=== PATIENT | female | born 1955 | race Caucasian/White ===

== ENCOUNTER → 2017-05-09 12:18 | Outpatient (CLI) | payer BC, SELFPAY ==
[2017-05-10 14:07] LABS: Anti-Scleroderma-70 AB <0.2 AI (0.0-0.9); Complement C3 149 mg/dL (82-167); RNP Ab <0.2 AI (0.0-0.9); SJOGREN'S Anti-SS-A test < 0.2 AI (0.0-0.9); SJOGREN'S Anti-SS-B test 0.3 AI (0.0-0.9); Smith Ab <0.2 AI (0.0-0.9)
[2017-05-10 14:45] LABS: ANTINUCLEAR ANTIBODIES DIRECT Negative (Negative); Anti-Mitochondrial AB <20.0 Units (0.0-20.0); Anti-Parietal Cell AB, QN < 1.0 Units (0.0-20.0); Anti-Smooth Muscle ABS 6 Units (0-19); Anti-dsDNA Ab <1 IU/mL (0-9); Thyroid Peroxidase AB 6 IU/mL (0-34)
== END ==
PROVIDERS: Family Provider Family Medicine; PCP Family Medicine; Visit Provider Internal Medicine Rheumatology
DX: M19.041 Primary osteoarthritis, right hand (principal); R76.8 Other specified abnormal immunological findings in serum; M25.572 Pain in left ankle and joints of left foot
CPT/HCPCS: 36415; 83516; 86038; 86160; 86225; 86235; 86376

== ENCOUNTER → 2018-03-17 08:32 | Outpatient (CLI) | payer BC, SELFPAY ==
[2018-03-17 11:01] LABS: Cholesterol 141 mg/dL (200); High Density Lipoprotein 37 mg/dL; Triglycerides 139 mg/dL; Very Low Density Lipoprotein 28 mg/dL (5-40)
== END ==
PROVIDERS: Family Provider Family Medicine; PCP Family Medicine; Referring Provider Family Medicine; Visit Provider Family Medicine
DX: E78.5 Hyperlipidemia, unspecified (principal)
CPT/HCPCS: 36415; 80061

== ENCOUNTER 2018-03-26 05:51 | Emergency (ER) | payer BC, SELFPAY ==
[2018-03-26 05:54] VITALS: BP 192/94; PULSE 91; RESP 16; TEMP 36.7; O2SAT 95; BMI 23.6
--- NOTE | 2018-03-26 05:55 | RAD_ITS ---
STUDY: X-RAY - SOFT TISSUE NECK REASON FOR EXAM: Female, 62 years old. Sore throat. Unable to clear the throat. TECHNIQUE: 2 view(s) of the neck were obtained. COMPARISON: None. FINDINGS: Questionable increased soft tissue base of the hypopharynx. Prevertebral soft tissues are unremarkable. Normal epiglottis. Normal visualized subglottic tracheal air column. Normal prevertebral soft tissue structures. Degenerative changes C5-6 and C6-7 with disc space narrowing and anterior osteophytes. RAD/Neck for Soft Tissue IMPRESSION: Questionable increased soft tissue within the hypopharynx. Consider CT of the neck with contrast. Degenerative changes of lower cervical spine. Electronically Signed: Vel Man MD at 6:27 EST , Service support ,
--- NOTE | 2018-03-26 05:56 | ED.VISSUMM ---
- ER Visit Summary Date of Service: 03/26/18 Chief Complaint: Something swollen in my throat History of Present Illness: The patient is a 62 F who states on Saturday she began to have a slight rhinorrhea and a very cough. This morning she woke with sensation something was in her throat. She states she does not feel like she can clear it. She is able to get up a little bit of phlegm but it did not help. She denies any fevers. No change in phonation. Physical Examination: Afebrile noted hypertension Gen: Well-nourished well-developed Head: Normocephalic atraumatic Eyes: Perrl EOMI ENT: TMs clear turbinate edema moist mucous membranes patient has a prominent gag reflex which limits exam but I do not see an obvious peritonsillar or retropharyngeal abscess. The uvula is erythematous and edematous. There is no drooling. No trismus. Neck: Supple no lymphadenopathy no JVD nontender CVS: Regular rate rhythm no murmurs normal S1-S2 Respiratory: No distress clear to auscultation bilaterally chest nontender Abdomen: Soft nontender nondistended normal bowel sounds no masses Back: Nontender Extremity: Nontender no edema Skin: Normal color no rash Neuro: alert orientated ?3 CN II-XII intact normal strength sensation reflexes gait cerebellar Psych: Normal affect normal mood Test Results: Soft tissue neck was obtained. Epiglottis is normal. There is a question of hypopharyngeal soft tissue swelling. However when asked to point where she is having symptoms she points up by her tonsillar area. Emergency Department Course and Treatment: Patient will be given a dose of Decadron. She will be instructed on cold fluids today. This should be a self-limited illness. Impression: 1. Uvulitis 2. URI This note was generated with [employer] dictation software. It may contain incorrect words, spelling, and punctuation that were not noted in review of the chart prior to signing ED Disposition - Plan for ED Patient: Disposition: Home or Assisted Living Chief Complaint: Sore Throat Instructions: ED Uvulitis Referrals: Geno Crocker DO [Primary Care Provider] - 1 Week if not improving
--- NOTE | 2018-03-26 06:01 | ED.DCSUM_ITS ---
- ER Visit Summary Date of Service: 03/26/18 Chief Complaint: Something swollen in my throat History of Present Illness: The patient is a 62 F who states on Saturday she began to have a slight rhinorrhea and a very cough. This morning she woke with sensation something was in her throat. She states she does not feel like she can clear it. She is able to get up a little bit of phlegm but it did not help. She denies any fevers. No change in phonation. Physical Examination: Afebrile noted hypertension Gen: Well-nourished well-developed Head: Normocephalic atraumatic Eyes: Perrl EOMI ENT: TMs clear turbinate edema moist mucous membranes patient has a prominent gag reflex which limits exam but I do not see an obvious peritonsillar or retropharyngeal abscess. The uvula is erythematous and edematous. There is no drooling. No trismus. Neck: Supple no lymphadenopathy no JVD nontender CVS: Regular rate rhythm no murmurs normal S1-S2 Respiratory: No distress clear to auscultation bilaterally chest nontender Abdomen: Soft nontender nondistended normal bowel sounds no masses Back: Nontender Extremity: Nontender no edema Skin: Normal color no rash Neuro: alert orientated ?3 CN II-XII intact normal strength sensation reflexes gait cerebellar Psych: Normal affect normal mood Test Results: Soft tissue neck was obtained. Epiglottis is normal. There is a question of hypopharyngeal soft tissue swelling. However when asked to point where she is having symptoms she points up by her tonsillar area. Emergency Department Course and Treatment: Patient will be given a dose of Decadron. She will be instructed on cold fluids today. This should be a self- limited illness. Impression: 1. Uvulitis 2. URI This note was generated with [employer] dictation software. It may contain incorrect words, spelling, and punctuation that were not noted in review of the chart prior to signing ED Disposition - Plan for ED Patient: Disposition: Home or Assisted Living Chief Complaint: Sore Throat Instructions: ED Uvulitis Referrals: Geno Crocker DO [Primary Care Provider] - 1 Week if not improving
== END 2018-03-26 06:45 | disposition home or self-care (01) ==
PROVIDERS: Emergency Provider Emergency Medicine; Family Provider Family Medicine; PCP Family Medicine
DX: K12.2 Cellulitis and abscess of mouth (principal); J06.9 Acute upper respiratory infection, unspecified; I10 Essential (primary) hypertension; Z79.899 Other long term (current) drug therapy
CPT/HCPCS: 70360; 99283

== ENCOUNTER → 2018-04-19 07:12 | Outpatient (CLI) | payer BC, SELFPAY ==
[2018-03-26 05:54] VITALS: BMI 23.6
--- NOTE | 2018-04-19 07:16 | BI_ITS ---
MAMMOGRAPHY - BILATERAL SCREENING REASON FOR EXAM: Female, 62 years old. Routine annual screening examination. PERTINENT HISTORY: Non-contributory. Remote right ultrasound guided breast biopsy and left stereotactic breast biopsy. TECHNIQUE: Digital bilateral breast ronit (3D mammographic acquisition) in the CC and MLO projections. 2-D mediolateral oblique (MLO) and craniocaudad (CC) views of both breasts were obtained. CAD: Full Field Digital Mammography with Computer Added Detection was performed. COMPARISON: Comparison is made with prior study dated November 05, 2016 and July 27, 2011. FINDINGS: Breast Composition: The breasts are heterogeneously dense, which may obscure small masses. There are no dominant masses or suspicious calcifications. Once again, a tissue clip marker from prior biopsy is seen in the deep retroareolar region of the left breast as well as in the upper lateral portion of the right breast. Stable asymmetrical thickening of the right areola. No other significant abnormalities are identified. There has been no significant change since the prior study. BI/SCREENING MAMM (CAD), BILAT IMPRESSION: Stable bilateral screening mammogram. Yearly follow-up mammogram recommended. (A) ASSESSMENT CATEGORY: BIRADS Category 2: Benign. A letter regarding these results will be sent to the patient by the facility within 30 days. Approximately 10% of breast cancers are not detected by mammography. A normal mammogram should not delay biopsy of a clinically suspicious abnormality. [id number] Electronically Signed: Nehemiah Holland MD at 8:30 EST Tel [phone], Service support ,
--- OUTSIDE RECORDS SUMMARY | 2018-07-23 08:23 | XMS RPT_ITS ---
:1955 Author Organization [place] Support Name Relationship Address Phone [facility] Unavailable [address] + [place] [address] KENNETH HODGSON Unavailable [address] + [place] [address] [facility] Unavailable [address] + [place] [address] KENNETH HODGSON Unavailable [address] + [place] [address] [facility] Unavailable [address] + [place] [address] KENNETH HODGSON Unavailable [address] + [place] [address] [facility] Unavailable [address] + [place] [address] KENNETH HODGSON Unavailable [address] + [place] [address] [facility] Unavailable [address] + [place] [address] KENNETH HODGSON Unavailable [address] [phone] [place] [address] KENNETH HODGSON Unavailable [address] + [place] [address] [facility] Unavailable [address] + [place] [address] KENNETH HODGSON Unavailable [address] [phone] [place] [address] [facility] Unavailable [address] + [place] [address] KENNETH HODGSON Unavailable [address] [phone] [place] [address] Care Team Providers Name Role Phone NATACHA JOSHUA Attending Unavailable DR. GENO CROCKER DO Primary Care Unavailable Niki Taveras Attending Unavailable Malys, Geno Primary Care Unavailable Malys, Geno Consulting Unavailable Malys, Geno Primary Care Unavailable Sigifredo Flores Attending Unavailable Radha Bran Attending Unavailable Malys, Geno Referring Unavailable Malys, Geno Primary Care Unavailable Malys, Geno Attending Unavailable Malys, Geno Primary Care Unavailable Malys, Geno Referring Unavailable Malys, Geno Primary Care Unavailable Asif Cuevas Attending Unavailable Niki Taveras Attending Unavailable Malys, Geno Referring Unavailable Malys, Geno Primary Care Unavailable Natacha Joshua Attending Unavailable Malys, Geno Primary Care Unavailable Natacha Joshua Referring Unavailable PROBLEMS PROBLEMS DATE TYPE CONDITION / CODE ATTENDING STATUS SOURCE 05/19/2018 Unknown S42.309A - Sigifredo Flores Active [facility] Unspecified Community fracture of shaft [facility] of humerus, Repository unspecified arm, initial encounter for closed fracture / S42.309A(ICD-10) 03/17/2018 Unknown E78.5 - Geno Crocker Active [facility] Hyperlipidemia, Community unspecified / Hospital E78.5(ICD-10) Repository PROCEDURES PROCEDURES No Procedure Records FoundRESULTS RESULTS EMERGENCY DEPARTMENT Observed: 05/23/2018 Status: F Source: [place] SUMMARY 12:13 AM [facility] [place] Medical Records Department [address] [place] [address] Emergency Department Summary 05/19/18 1309 MR#: [id number] Acct: [id number] Name: ADELAIDA HODGSON Rep #: [id number] : 1955 62 From: Sigifredo Flores MD PCP: Geno Crocker DO Status: DEP ER 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 She is right-hand dominant. Reports she is prior to emerge department he tripped over originally carpet and injured her left shoulder. She reports that she has pain here that is 10 out of 10 severity. She denies any other injuries. No blow to the head or loss of consciousness. She is not on blood thinners. No neck, back, wrist, or hip pain. Physical Examination: Vitals: Stable. Afebrile. Neck: No vertebral tenderness. Full ROM without difficulty. Cleared by NEXUS criteria. Back: No vertebral tenderness. General: A AND O x 3. NAD. Cardiovascular exam: Regular rate and rhythm, no murmur, rub or gallop. Respiratory exam: Chest nontender. No crepitus. Clear to auscultation bilaterally. No wheezes or stridor. Abdominal exam: Soft, nontender, nondistended, normal bowel sounds. No pain in RUQ or LUQ specifically. No peritoneal signs. Extremity: Severe tenderness palpation over the left proximal humerus. She has decreased range of motion secondary to pain. She is neurovascular intact distally this. Test Results: Left humerus x-ray shows a nondisplaced transverse fracture of the surgical neck with extension to the greater tuberosity. Emergency Department Course and Treatment: Patient was treated with fentanyl IM and was placed in a sling. Treatment Plan: Patient will be discharged with Zofran, Percocet, and Colace. Instructed follow-up with corporate bain and Dr. Colbert in 1 week for another exam. Return to the emergency department for any worsening symptoms. Disposition: To home in improved and stable condition. Impression: 1. Left proximal humerus fracture. This note was generated with ReadyDock dictation software. It may contain incorrect words, spelling, and punctuation that were not noted in review of the chart prior to signing ED Disposition - Plan for ED Patient: Disposition: Home or Assisted Living Chief Complaint: Fall Instructions: ED Fx Shoulder Prescriptions: Oxycodone HCl/Acetaminophen [Percocet 5/325] 1 tablet PO Q6H PRN PRN 5 Days #20 tablet PRN Reason: Pain Ondansetron [Zofran Odt] 4 mg PO Q8H PRN PRN #10 tablet PRN Reason: Nausea Docusate Sodium [Colace] 100 mg PO DAILY #20 capsule Referrals: Komal Hernandes [GROUP OF PHYSICIANS] - 1 Week Josiah Colbert DO [STAFF PHYSICIAN] - 1 Week What to do if you have Problems For any increased pain, shortness of breath, bleeding, nausea or vomiting, chest pain, or any unexpected problems, contact your Primary Care Provider. Call [facility] ([phone]) or report to the closest Emergency Room. Call 911 if necessary. 05/23/18 0013 <Electronically signed by Sigifredo Flores MD> Date Sigifredo Flores MD Cosigner Signature (If Indicated): Date CC: Geno Crocker DO HUMERUS MIN 2 VIEWS Observed: 05/19/2018 Status: F Source: [place] 12:00 PM [facility] Imaging Services [address] [place], [place] [address] [address] Humerus min 2 Views MR#: [id number] Acct: [id number] Name: ADELAIDA HODGSON Rep #: [id number] : 1955 F 62 From: Nehemiah Holland MD PCP: Geno Crocker DO Status: PRE ER Study: Humerus min 2 Views Date of Exam: 05/19/18 Exam# [id number] Ordering Dr: Sigifredo Flores MD STUDY: X-RAY - LEFT HUMERUS REASON FOR EXAM: Female, 62 years old. Pain in the proximal humerus following a fall. TECHNIQUE: 2 view(s) of the humerus. COMPARISON: None. FINDINGS: Nondisplaced transverse fracture of the surgical neck of the humerus with extension into the greater tuberosity. Soft tissue swelling. RAD/Humerus min 2 Views IMPRESSION: Nondisplaced transverse fracture of the surgical neck of the humerus with extension to the greater tuberosity. Overlying soft tissue swelling. Electronically Signed: Nehemiah Holland MD at 12:37 EST Tel [phone], Service support , CC: Geno Crocker DO; Sigifredo Flores MD Tile Layer Supervisor: Signed SCREENING MAMM (CAD), Observed: 04/19/2018 Status: F Source: [place] BILAT 7:16 AM [facility] Imaging Services [address] [place] [address] SCREENING MAMM (CAD), BILAT MR#: [id number] Acct: [id number] Name: ADELAIDA HODGSON Rep #: [id number] : 1955 F 62 From: Nehemiah Holland MD PCP: Geno Crocker DO Status: REG CLI Study: SCREENING MAMM (CAD), BILAT Date of Exam: 04/19/18 Exam# [id number] Ordering Dr: Niki Taveras MD MAMMOGRAPHY - BILATERAL SCREENING REASON FOR EXAM: Female, 62 years old. Routine annual screening examination. PERTINENT HISTORY: Non-contributory. Remote right ultrasound guided breast biopsy and left stereotactic breast biopsy. TECHNIQUE: Digital bilateral breast ronit (3D mammographic acquisition) in the CC and MLO projections. 2-D mediolateral oblique (MLO) and craniocaudad (CC) views of both breasts were obtained. CAD: Full Field Digital Mammography with Computer Added Detection was performed. COMPARISON: Comparison is made with prior study dated November 05, 2016 and July 27, 2011. FINDINGS: Breast Composition: The breasts are heterogeneously dense, which may obscure small masses. There are no dominant masses or suspicious calcifications. Once again, a tissue clip marker from prior biopsy is seen in the deep retroareolar region of the left breast as well as in the upper lateral portion of the right breast. Stable asymmetrical thickening of the right areola. No other significant abnormalities are identified. There has been no significant change since the prior study. BI/SCREENING MAMM (CAD), BILAT IMPRESSION: Stable bilateral screening mammogram. Yearly follow-up mammogram recommended. (A) ASSESSMENT CATEGORY: BIRADS Category 2: Benign. A letter regarding these results will be sent to the patient by the facility within 30 days. Approximately 10% of breast cancers are not detected by mammography. A normal mammogram should not delay biopsy of a clinically suspicious abnormality. [id number] Electronically Signed: Nehemiah Holland MD at 8:30 EST Tel [phone], Service support , CC: Geno Crocker DO; Niki Taveras MD Tile Layer Supervisor: Signed EMERGENCY DEPARTMENT Observed: 03/26/2018 Status: F Source: [place] SUMMARY 6:51 AM [facility] Medical Records Department [address] [place] [address] Emergency Department Summary 03/26/18 0556 MR#: [id number] Acct: [id number] Name: ADELAIDA HODGSON Rep #: [id number] : 1955 62 From: Asif Cuevas DO PCP: Geno Crocker DO Status: DEP ER - ER Visit Summary Date of Service: 03/26/18 Chief Complaint: Something swollen in my throat History of Present Illness: The patient is a 62 F who states on Saturday she began to have a slight rhinorrhea and a very cough. This morning she woke with sensation something was in her throat. She states she does not feel like she can clear it. She is able to get up a little bit of phlegm but it did not help. She denies any fevers. No change in phonation. Physical Examination: Afebrile noted hypertension Gen: Well-nourished well-developed Head: Normocephalic atraumatic Eyes: Perrl EOMI ENT: TMs clear turbinate edema moist mucous membranes patient has a prominent gag reflex which limits exam but I do not see an obvious peritonsillar or retropharyngeal abscess. The uvula is erythematous and edematous. There is no drooling. No trismus. Neck: Supple no lymphadenopathy no JVD nontender CVS: Regular rate rhythm no murmurs normal S1-S2 Respiratory: No distress clear to auscultation bilaterally chest nontender Abdomen: Soft nontender nondistended normal bowel sounds no masses Back: Nontender Extremity: Nontender no edema Skin: Normal color no rash Neuro: alert orientated 3 CN II-XII intact normal strength sensation reflexes gait cerebellar Psych: Normal affect normal mood Test Results: Soft tissue neck was obtained. Epiglottis is normal. There is a question of hypopharyngeal soft tissue swelling. However when asked to point where she is having symptoms she points up by her tonsillar area. Emergency Department Course and Treatment: Patient will be given a dose of Decadron. She will be instructed on cold fluids today. This should be a self- limited illness. Impression: 1. Uvulitis 2. URI This note was generated with ReadyDock dictation software. It may contain incorrect words, spelling, and punctuation that were not noted in review of the chart prior to signing ED Disposition - Plan for ED Patient: Disposition: Home or Assisted Living Chief Complaint: Sore Throat Instructions: ED Uvulitis Referrals: Geno Crocker DO [Primary Care Provider] - 1 Week if not improving What to do if you have Problems For any increased pain, shortness of breath, bleeding, nausea or vomiting, chest pain, or any unexpected problems, contact your Primary Care Provider. Call [facility] ([phone]) or report to the closest Emergency Room. Call 911 if necessary. 03/26/18 0651 <Electronically signed by Asif Cuevas DO> Date Asif Cuevas DO Cosigner Signature (If Indicated): Date CC: Geno Crocker DO NECK FOR SOFT Observed: 03/26/2018 Status: F Source: [place] TISSUE 5:55 AM [facility] Imaging Services [address] [place] [address] Neck for Soft Tissue MR#: [id number] Acct: [id number] Name: ADELAIDA HODGSON Rep #: [id number] : 1955 F 62 From: Vel Man PCP: Geno Crocker DO Status: REG ER Study: Neck for Soft Tissue Date of Exam: 03/26/18 Exam# [id number] Ordering Dr: Asif Cuevas DO STUDY: X-RAY - SOFT TISSUE NECK REASON FOR EXAM: Female, 62 years old. Sore throat. Unable to clear the throat. TECHNIQUE: 2 view(s) of the neck were obtained. COMPARISON: None. FINDINGS: Questionable increased soft tissue base of the hypopharynx. Prevertebral soft tissues are unremarkable. Normal epiglottis. Normal visualized subglottic tracheal air column. Normal prevertebral soft tissue structures. Degenerative changes C5-6 and C6-7 with disc space narrowing and anterior osteophytes. RAD/Neck for Soft Tissue IMPRESSION: Questionable increased soft tissue within the hypopharynx. Consider CT of the neck with contrast. Degenerative changes of lower cervical spine. Electronically Signed: Vel Man MD at 6:27 EST , Service support , CC: Asif Cuevas DO; Geno Crocker DO Tile Layer Supervisor: Signed LIPID PROFILE Collected: 03/17/2018 Status: F Source: [place] 8:37 AM [facility] [place] [facility] TYPE CODE TESTS RESULT OUT OF RANGE REFERENCE UNITS LAB L501.4900 200 mg/dL Normal CHOL 141 Result Comment: <200 mg/dL Desirable 200-240 mg/dL Borderline >240 mg/dL High Risk LAB L501.5000 mg/dL Normal TRIG 139 Result Comment: The drugs N-Acetylcysteine and Metamizole may falsely depress this assay. Serum Triglycerides Reference Interval Normal <150 mg/dL Borderline high 150 - 199 mg/dL High 200 - 499 mg/dL Very High > or = 500 mg/dL LAB L501.6400 mg/dL Low HDL 37 Result Comment: The drugs N-Acetylcysteine and Metamizole may falsely depress this assay. Reference Range HDL <40 mg/dL Low HDL Cholesterol HDL >or= 60 mg/dL High HDL Cholesterol LAB L501.6500 0-130 mg/dL Normal LDL 76 LAB L501.6600 5-40 mg/dL Normal VLDL 28 Performed By: #### L500.4100 #### [facility] [address] [place], [address] PROGRESS Observed: 09/23/2017 Status: COMPLETED Source: [place] 7:08 PM [facility] [place] REPOSITORY HNO ID: [id number] Author: Karina Harris (Library Science Instructor) Goucher Service: (none) Author Type: Nurse Practitioner Type: Progress Notes Filed: 09/23/2017 7:19 PM Note Text: Subjective HPI HPI Adelaida Hodgson is a 61 year old female who presents today for CC of sore throat This started 2 weeks ago She has tried tylenol ACTIVE PROBLEM LIST Osteoarthrosis, Unspecified Whether Generalized Or Localized, Unspecified Site Synovial Cyst, Unspecified Pyoderma, Unspecified Esophageal Reflux Diffuse Cystic Mastopathy Essential Hypertension Hypertonicity of Bladder Dysphagia, Unspecified(787.20) Rheumatoid Arthritis (Hcc) Asthma Psoriasis: hands Scalp Psoriasis Osteopenia Lichen Sclerosus Psoriasis arthropathica (HCC) Screening for Colon Cancer Bppv (Benign Paroxysmal Positional Vertigo) BP 140/84 Pulse 70 Temp 36.8 ?C (98.2 ?F) (Tympanic) Resp 16 Wt 73.5 kg (162 lb) LMP 08/31/2005 BMI 28.70 kg/m? ALLERGIES Allergen Reactions - Ampicillin Diarrhea loss of derek-severe diarrhea - Acebutolol Mental Status Change flat emotions, depressed- started again with no c/o - Adhesive Tape (Mavis* Swelling - Amoxicillin tongue swollen and sore - Atenolol Swelling tongue swelling - Azithromycin Intolerance conjunctiva redness, eyelids swollen - Doxycycline Swelling Swelling of tongue - Fluconazole Rash repeat dosing 07/2015 w swelling eyes,conjunctival redness - Irbesartan Intolerance heart pounding - Latex - Levaquin [Levofloxa* Mental Status Change burning total body - Lisinopril GI Upset heartburn - Macrobid [Nitrofura* Swelling Tongue swelling - Plaquenil [Hydroxyc* Intolerance cannot remember exactly Current Outpatient Prescriptions: metoprolol succinate ER (TOPROL XL) 50 mg 24 hr tablet Take 1 tablet by mouth once daily. Disp: 90 tablet Rfl: 0 nystatin (MYCOSTATIN) 100,000 unit/mL suspension Take 5 mL by mouth four times daily. 1tsp swish in mouth for several minutes, then swallow (or expectorate) 4 times daily until gone. Disp: 200 mL Rfl: 5 COMPOUNDED PRESCRIPTION Temovate Ointment 0.05% with 5.0% Salicylic Acid : Apply to psoriasis of palmar/plantar hands//feet qday as directed/tolerated prn need. Disp: 60 g Rfl: 3 clobetasol (TEMOVATE) 0.05 % ointment Apply to affected area nightly x 6-12 weeks, then use 1-2x weekly for maintenance Disp: 30 g Rfl: 6 ibuprofen (ADVIL) 200 mg ORAL Tab Take one(1) to two(2) tablets every two(2) hours as needed for pain. Disp: Rfl: 0 zolpidem (AMBIEN) 5 mg ORAL tablet Take one(1) tablet at bedtime as needed for insomnia. (Patient not taking: No sig reported) Disp: 30 Tab Rfl: 5 No current facility-administered medications for this visit. Review of Systems Constitutional: Negative for chills, diaphoresis, fever and malaise/fatigue. HENT: Positive for sore throat. Negative for congestion and ear pain. Respiratory: Negative for cough and wheezing. Gastrointestinal: Negative for abdominal pain, diarrhea, nausea and vomiting. Musculoskeletal: Negative for joint pain and myalgias. Skin: Negative for rash. Neurological: Negative for weakness and headaches. Objective Physical Exam Constitutional: She is oriented to person, place, and time and well-developed, well-nourished, and in no distress. No distress. HENT: Head: Normocephalic and atraumatic. Right Ear: Tympanic membrane and ear canal normal. Left Ear: Ear canal normal. Tympanic membrane is erythematous and bulging. A middle ear effusion (yellow) is present. Nose: Mucosal edema (mild) present. No rhinorrhea. Right sinus exhibits no maxillary sinus tenderness and no frontal sinus tenderness. Left sinus exhibits no maxillary sinus tenderness and no frontal sinus tenderness. Mouth/Throat: Uvula is midline and mucous membranes are normal. Posterior oropharyngeal erythema present. No oropharyngeal exudate. Eyes: Conjunctivae and EOM are normal. Pupils are equal, round, and reactive to light. Right eye exhibits no discharge. Left eye exhibits no discharge. Neck: Normal range of motion. Neck supple. No thyromegaly present. Cardiovascular: Normal rate, regular rhythm and normal heart sounds. Pulmonary/Chest: Effort normal and breath sounds normal. No respiratory distress. She has no wheezes. She has no rales. Lymphadenopathy: She has no cervical adenopathy. Neurological: She is alert and oriented to person, place, and time. Gait normal. GCS score is 15. Skin: Skin is warm and dry. She is not diaphoretic. Psychiatric: Affect and judgment normal. ASSESSMENT/PLAN: 1. Sore throat - ICD9: 462, ICD10: J02.9 (primary diagnosis) - Rapid Strep negative in the office today - RAPID STREP TEST B/O 2. Acute otitis media, left - ICD9: 382.9, ICD10: H66.92 - Supportive care with plenty of fluids, rest, and analgesia prn. - Follow up in one week if symptoms persist or worsen. - CEFDINIR 300 MG CAPSULE Karina Savage APRN.CNP CNOV Observed: 09/23/2017 Status: COMPLETED Source: [place] 7:[address] [facility] REPOSITORY Office Visit (WSTR) ADELAIDA HODGSON ([id number]) 1955 F Date Time Provider Department 09/23/17 7:00 PM KARINA SAVAGE (JOSE E) [facility] During your visit today, we recorded the following information about you: Temperature Pulse Respiration Blood pressure 98.2 degrees 70/minute 16/minute 140/84 Weight 73.5 kg Karina Savage APRN.CNP 09/23/2017 7:19 PM Signed Subjective HPI HPI Adelaida Hodgson is a 61 year old female who presents today for CC of sore throat This started 2 weeks ago She has tried tylenol ACTIVE PROBLEM LIST Osteoarthrosis, Unspecified Whether Generalized Or Localized, Unspecified Site Synovial Cyst, Unspecified Pyoderma, Unspecified Esophageal Reflux Diffuse Cystic Mastopathy Essential Hypertension Hypertonicity of Bladder Dysphagia, Unspecified(787.20) Rheumatoid Arthritis (Hcc) Asthma Psoriasis: hands Scalp Psoriasis Osteopenia Lichen Sclerosus Psoriasis arthropathica (HCC) Screening for Colon Cancer Bppv (Benign Paroxysmal Positional Vertigo) BP 140/84 Pulse 70 Temp 36.8 ?C (98.2 ?F) (Tympanic) Resp 16 Wt 73.5 kg (162 lb) LMP 08/31/2005 BMI 28.70 kg/m? ALLERGIES Allergen Reactions - Ampicillin Diarrhea loss of derek-severe diarrhea - Acebutolol Mental Status Change flat emotions, depressed- started again with no c/o - Adhesive Tape (Mavis* Swelling - Amoxicillin tongue swollen and sore - Atenolol Swelling tongue swelling - Azithromycin Intolerance conjunctiva redness, eyelids swollen - Doxycycline Swelling Swelling of tongue - Fluconazole Rash repeat dosing 07/2015 w swelling eyes,conjunctival redness - Irbesartan Intolerance heart pounding - Latex - Levaquin [Levofloxa* Mental Status Change burning total body - Lisinopril GI Upset heartburn - Macrobid [Nitrofura* Swelling Tongue swelling - Plaquenil [Hydroxyc* Intolerance cannot remember exactly Current Outpatient Prescriptions: metoprolol succinate ER (TOPROL XL) 50 mg 24 hr tablet Take 1 tablet by mouth once daily. Disp: 90 tablet Rfl: 0 nystatin (MYCOSTATIN) 100,000 unit/mL suspension Take 5 mL by mouth four times daily. 1tsp swish in mouth for several minutes, then swallow (or expectorate) 4 times daily until gone. Disp: 200 mL Rfl: 5 COMPOUNDED PRESCRIPTION Temovate Ointment 0.05% with 5.0% Salicylic Acid : Apply to psoriasis of palmar/plantar hands//feet qday as directed/tolerated prn need. Disp: 60 g Rfl: 3 clobetasol (TEMOVATE) 0.05 % ointment Apply to affected area nightly x 6-12 weeks, then use 1-2x weekly for maintenance Disp: 30 g Rfl: 6 ibuprofen (ADVIL) 200 mg ORAL Tab Take one(1) to two(2) tablets every two(2) hours as needed for pain. Disp: Rfl: 0 zolpidem (AMBIEN) 5 mg ORAL tablet Take one(1) tablet at bedtime as needed for insomnia. (Patient not taking: No sig reported) Disp: 30 Tab Rfl: 5 No current facility-administered medications for this visit. Review of Systems Constitutional: Negative for chills, diaphoresis, fever and malaise/fatigue. HENT: Positive for sore throat. Negative for congestion and ear pain. Respiratory: Negative for cough and wheezing. Gastrointestinal: Negative for abdominal pain, diarrhea, nausea and vomiting. Musculoskeletal: Negative for joint pain and myalgias. Skin: Negative for rash. Neurological: Negative for weakness and headaches. Objective Physical Exam Constitutional: She is oriented to person, place, and time and well-developed, well-nourished, and in no distress. No distress. HENT: Head: Normocephalic and atraumatic. Right Ear: Tympanic membrane and ear canal normal. Left Ear: Ear canal normal. Tympanic membrane is erythematous and bulging. A middle ear effusion (yellow) is present. Nose: Mucosal edema (mild) present. No rhinorrhea. Right sinus exhibits no maxillary sinus tenderness and no frontal sinus tenderness. Left sinus exhibits no maxillary sinus tenderness and no frontal sinus tenderness. Mouth/Throat: Uvula is midline and mucous membranes are normal. Posterior oropharyngeal erythema present. No oropharyngeal exudate. Eyes: Conjunctivae and EOM are normal. Pupils are equal, round, and reactive to light. Right eye exhibits no discharge. Left eye exhibits no discharge. Neck: Normal range of motion. Neck supple. No thyromegaly present. Cardiovascular: Normal rate, regular rhythm and normal heart sounds. Pulmonary/Chest: Effort normal and breath sounds normal. No respiratory distress. She has no wheezes. She has no rales. Lymphadenopathy: She has no cervical adenopathy. Neurological: She is alert and oriented to person, place, and time. Gait normal. GCS score is 15. Skin: Skin is warm and dry. She is not diaphoretic. Psychiatric: Affect and judgment normal. ASSESSMENT/PLAN: 1. Sore throat - ICD9: 462, ICD10: J02.9 (primary diagnosis) - Rapid Strep negative in the office today - RAPID STREP TEST B/O 2. Acute otitis media, left - ICD9: 382.9, ICD10: H66.92 - Supportive care with plenty of fluids, rest, and analgesia prn. - Follow up in one week if symptoms persist or worsen. - CEFDINIR 300 MG CAPSULE VENU Cary APRN.CNP 09/23/2017 7:17 PM Signed ASSESSMENT/PLAN: 1. Sore throat - ICD9: 462, ICD10: J02.9 (primary diagnosis) - Rapid Strep negative in the office today - RAPID STREP TEST B/O 2. Acute otitis media, left - ICD9: 382.9, ICD10: H66.92 - Supportive care with plenty of fluids, rest, and analgesia prn. - Follow up in one week if symptoms persist or worsen. - CEFDINIR 300 MG CAPSULE Referring Provider: SELF [200] Allergies As of Date: 09/23/2017 Noted Allergy Reaction AMPICILLIN 11/07/2004 6 - Diarrhea Comments: loss of derek-severe diarrhea ACEBUTOLOL 05/13/2012 1 - Mental Status Change Comments: flat emotions, depressed- started again with no c/o ADHESIVE TAPE (ROSINS) 02/17/2007 7 - Swelling AMOXICILLIN 06/28/2007 Comments: tongue swollen and sore ATENOLOL 01/26/2009 7 - Swelling Comments: tongue swelling AZITHROMYCIN 08/10/2015 5 - Intolerance Comments: conjunctiva redness, eyelids swollen DOXYCYCLINE 04/21/2008 7 - Swelling Comments: Swelling of tongue FLUCONAZOLE 07/10/2013 2 - Rash Comments: repeat dosing 07/2015 w swelling eyes,conjunctival redness IRBESARTAN 01/07/2013 5 - Intolerance Comments: heart pounding LATEX 02/22/2009 LEVAQUIN (LEVOFLOXACIN) 05/13/2012 1 - Mental Status Change Comments: burning total body LISINOPRIL 03/24/2008 8 - GI Upset Comments: heartburn MACROBID (NITROFURANTOIN MONOHYD/*11/05/2005 7 - Swelling Comments: Tongue swelling PLAQUENIL (HYDROXYCHLOROQUINE SUL*08/22/2009 5 - Intolerance Comments: cannot remember exactly Date Reviewed: 09/23/2017 Reviewed by: Karina Harris (Jose E) Hussein - Fully Assessed Reason for Visit: Throat Problem [109] Cmt: left tonsil pain x 2 weeks Primary Visit Diagnosis:Sore throat [J02.9] Other Visit Diagnosis:Acute otitis media, left [H66.92] Order(s):RAPID STREP TEST B/O [1390923] Order #: [id number] cefdinir (OMNICEF) 300 mg capsuleTake 1 capsule by mouth twice daily for 10 days.Disp: 20 capsuleRfl: 0 Prescriptions as of 09/23/2017 Sig: METOPROLOL SUCCINATE ER 50 MG* Take 1 tablet by mouth once d* NYSTATIN 100,000 UNIT/ML ORAL* Take 5 mL by mouth four times* COMPOUNDED PRESCRIPTION Temovate Ointment 0.05% with * CLOBETASOL 0.05 % TOPICAL OIN* Apply to affected area nightl* ADVIL 200 MG TABLET Take one(1) to two(2) tablets* CEFDINIR 300 MG CAPSULE Take 1 capsule by mouth twice* ZOLPIDEM 5 MG TABLET Take one(1) tablet at bedtime* Patient not taking: No sig reported Problem List As Of Date 09/23/2017 Noted Resolved PSORIASIS [L40.8] INVALID FOR*06/30/2008 PSORIATIC ARTHROPATHY ? [L40.50] INVALID FOR*06/30/2008 OSTEOARTHROS NOS-UNSPEC [M19.90] INVALID FOR* SYNOVIAL CYST NOS [M71.30] INVALID FOR* PYODERMA NOS [L08.0] INVALID FOR* ESOPHAGEAL REFLUX [K21.9] INVALID FOR* DISEASES OF NAIL NEC [L60.8] INVALID FOR*06/30/2008 CUTANEOUS CANDIDIASIS [B37.2] INVALID FOR*06/30/2008 DIFFUS CYSTIC MASTOPATHY [N60.19] INVALID FOR* CONTACT ECZEMATOUS DERMATITIS NEC [L25.8] INVALID FOR*06/30/2008 CONTACT DERMATITIS DUE TO PLANT [L25.5] INVALID FOR*06/30/2008 TOPICAL MED DERMATITIS [L25.1] INVALID FOR*06/30/2008 ECZEMATOUS DERMATITIS NOS [L25.9] INVALID FOR*06/30/2008 PRURITIC DISORDER NOS [L29.9] INVALID FOR*06/30/2008 EXCORIATIONS///SUPERFICIAL INJURY NEC [T07.XXXA]INVALID FOR*06/30/2008 Essential hypertension [I10] INVALID FOR* HYPERTONICITY OF BLADDER [N31.8] INVALID FOR* Dysphagia, Unspecified [R13.10] INVALID FOR* Acute gastritis without mention of hemorrhage [*INVALID FOR*09/08/2013 Rheumatoid arthritis (HCC) [M06.9] INVALID FOR* Asthma [J45.909] INVALID FOR* Psoriasis: hands [L40.8] INVALID FOR* Scalp Psoriasis [L40.9] INVALID FOR* Abnormal mammogram, unspecified [R92.8] INVALID FOR*09/08/2013 Osteopenia [M85.80] INVALID FOR* Cystitis [N30.90] INVALID FOR*09/08/2013 Lichen sclerosus [L90.0] INVALID FOR* Psoriasis arthropathica (HCC) [L40.50] INVALID FOR* Screening for colon cancer [Z12.11] INVALID FOR* BPPV (benign paroxysmal positional vertigo) [H8*INVALID FOR* Other instructions from your clinician: ASSESSMENT/PLAN: 1. Sore throat - ICD9: 462, ICD10: J02.9 (primary diagnosis) - Rapid Strep negative in the office today - RAPID STREP TEST B/O 2. Acute otitis media, left - ICD9: 382.9, ICD10: H66.92 - Supportive care with plenty of fluids, rest, and analgesia prn. - Follow up in one week if symptoms persist or worsen. - CEFDINIR 300 MG CAPSULE Prescriptions ordered this encounter Disp Refills Start End CEFDINIR 300 MG CAPSULE 20 c* 0 09/23/2017 10/03/2017 Route: ORAL Sig: Take 1 capsule by mouth twice daily for 10 days. Encounter Status:Closed by KARINA SAVAGE on 09/23/17 [facility]MOND PASTE MOLDER OFFICE VISIT Observed: 07/29/2017 Status: F Source: FANY REPORT 3:28 PM [facility] [place] [facility] [address] [place] [address] OFFICE VISIT Date of Service: 07/29/17 MR#: [id number] Acct: [id number] Name: ADELAIDA HODGSON Rep #: [id number] : 1955 Provider: NINA Bran Age/Sex: 61/F [place] [facility] [place] Signed Intake Vital Signs07/29/17 Height 5 ft 4 in 07/29/17 Weight: 161 lb 8 oz 07/29/17 Body Mass Index (BMI) 27.7 07/29/17 Blood Pressure 170/82 Intake Visit Reasons: Vaginal bump Chief Complaint: Vaginal Bump Catalog Librarian Required: No Is patient in pain?: No Allergies amoxicillin Allergy (Severe, Verified 07/29/17 14:54) tongue swelling atenolol Allergy (Severe, Verified 07/29/17 14:54) tongue swelling lisinopril Allergy (Intermediate, Verified 07/29/17 14:54) tongue swelling Medications metoprolol succinate ER 50 mg tablet,extended release 24 hr 50 mg PO QDAY 04/16/17 [History Confirmed 07/29/17] ranitidine 150 mg tablet 150 mg PO QHS 07/29/17 [History Confirmed 07/29/17] Is last menstrual period known: No Post menopausal: Yes Patient : No : No [facility] Medical History Lichen sclerosus et atrophicus (Chronic) Arthritis (Acute) History of cancer of gall bladder (Acute) Lichen sclerosus (Acute) Low back problem (Acute) High blood pressure (Chronic) Surgical History History of appendectomy (Acute) History of section (Acute) Hx of cholecystectomy (Acute) Family History Mother Heart disease Brother Heart disease Diabetes Father Diabetes Heart disease Social History Smoking Status: Never smoker second hand exposure: No alcohol intake: never substance use type: does not use what type of physical activity do you participate in: none seatbelt use: always do you feel safe at home: Yes additional social history: spouse Kenneth PARKER Vaginal bump: Details: ADELAIDA HODGSON is a 61 year old who presents for starting about 6 days ago painful lump in left vaginal area. States drained on 07/26 and less painful but wanted checked. Minimal discomfort to area now. No longer draining. Afebrile Pregancy History 2 Elective abortions Hx Para 2 Spontaneous abortions Past Pregnancies Del. DatName GA[facility]Out[facility] LgAn[facility]hesDel LocaProviderFOB e ht en ia tn Unknown 1982 Mat thew Unknown 1985 Ashish Exam Other: inner left labia <1cm healing inclusion cyst. Nonerythematous, nontender, no drainage. Assessment AND Plan Problems 1. Inclusion cyst of vulva N90.7 Plan healing appropriately. Warm soaks for comfort. Do not manipulate RTO prn Coding Level of Care Code Off vis,est,level 3 Diagnoses Inclusion cyst of vulva N90.7 07/29/17 1528 <Electronically signed by Radha GERONIMO> Date Radha Bran NP-C Cosigner Signature: Date (if applicable) CC: US EXTREMITY Observed: 07/08/2017 Status: F Source: JYOTSNA NON-VASCULAR LEFT 3:00 PM [facility] EM[facility]PART[facility] REPOSITORY ORIGINAL Ultrasound of the left forefoot CLINICAL STATEMENT: PAIN IN LT ANKLE AND JOINTS OF LT FOOT. ATTN: LT THIRD TOE, W/ PAIN AND SWELLING , history of psoriasis. COMPARISON: None FINDINGS: The dorsal aspect of the left third toe was scanned with additional images of the second and fourth toe also. At the PIP joint of the third toe, there is moderate thickening of synovium deep to the extensor tendon. Doppler evaluation does not show any increased blood flow in this area of synovial thickening. Th e extensor tendon appears intact. There is no significant joint effusion. Moderate marginal osteophyte formation is present at the PIP joint. There is also hypertrophy of the subcutaneous soft tissues of the third toe compared to the adjacent toes. Comparison images of the second and fourth toe show normal extensor tendon and no significant synovial thickening or joint effusion. There is mild degenerative marginal spurring. IMPRESSION: There is moderate thickening of the synovium in the third toe at the PIP joint as described. This is usually seen with inflammatory type of arthritis rather than osteoarthritis. The absence of blood riley w on Doppler would indicate inactive disease. There is evidence of degenerative arthritis at the PIP joint also. Interpreted By: Eldon Harris MD Preliminary Report By: Eldon Harris MD Electronically Signed By: Eldon Harris MD Dictated Date: 07/10/2017 11:14:19 AM Prelim Date: 07/10/2017 11:14:19 AM Sign Date: 07/10/2017 11:21:01 AM URIC ACID Collected: 05/29/2017 Status: F Source: FANY 12:25 PM [facility] [place] TYPE CODE TESTS RESULT OUT OF RANGE REFERENCE UNITS LAB L501.1400 2.6-6.0 mg/dL Normal URIC 6.0 Result Comment: The drugs N-Acetylcysteine and Metamizole may falsely depress this assay. Performed By: #### L501.1400, L505.7010 #### [facility] [address] [place], [address] RHEUMATOID FACTOR Collected: 05/29/2017 Status: F Source: FANY 12:25 PM [facility] [place] TYPE CODE TESTS RESULT OUT OF RANGE REFERENCE UNITS LAB L505.7010 <15 IU/mL Normal RHEUMATOID FAC < 10.0 Performed By: #### L501.1400, L505.7010 #### [facility] [address] [place], [address] [facility]D PA[employer] [facility]DER OFFICE VISIT Observed: 05/29/2017 Status: F Source: FANY REPORT 12:17 PM [facility] [place] 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 Chief Complaint: annual Catalog Librarian Required: No Is patient in pain?: No Allergies amoxicillin Allergy (Severe, Verified 04/16/17 11:09) tongue swelling atenolol Allergy (Severe, Verified 04/16/17 11:10) tongue swelling lisinopril Allergy (Intermediate, Verified 04/16/17 11:09) tongue swelling Medications ibuprofen 100 mg tablet PO PRN 04/16/17 [History Confirmed 04/16/17] metoprolol succinate ER 50 mg tablet,extended release 24 hr 50 mg PO QDAY 04/16/17 [History Confirmed 04/16/17] Is last menstrual period known: No Patient : No : No Pregancy History 2 Elective abortions Hx Para 2 Spontaneous abortions Past Pregnancies Del. DatName GA/WeeksOutcome Route Bt WeigInfant GLabor LgAnesthesDel LocaProviderFOB e ht en ia tn Unknown 1982 Mat thew Unknown 1985 Ashish th [facility] Medical History Lichen sclerosus et atrophicus (Chronic) Arthritis (Acute) History of cancer of gall bladder (Acute) Lichen sclerosus (Acute) Low back problem (Acute) High blood pressure (Chronic) Surgical History History of appendectomy (Acute) History of section (Acute) Family History Mother Heart disease Brother Heart disease Diabetes Father Diabetes Heart disease Social History Smoking Status: Never smoker second hand exposure: No alcohol intake: never substance use type: does not use what type of physical activity do you participate in: none seatbelt use: always additional social history: spouse Kenneth [facility] Encounter for routine gynecological examination: Details: ADELAIDA HODGSON is a 61 year old who presents for annual. pap 2014 normal kellen due colon cancer screening up to date Female Reproductive History Questions: Metorrhagia: No, Sexually active: Yes, Dyspareunia: No, PCB: No Menopausal Symptoms: No hot flashes, No night sweats, No weight change, No mood changes, No difficulty concentrating, No sleep problems, No change in libido ROS Const Constitutional: Reports as per HPI; denies poor appetite, fatigue, increased appetite, weight gain, weight loss or night sweats Cardio Card: Denies chest pain Resp Resp: Denies dyspnea or cough GI GI: Reports as per HPI and other (history in past of issues but doing well); denies bloating, abdominal pain, constipation, vomiting or nausea : Reports as per HPI and other; denies blood in urine, nipple discharge, vaginal odor, vaginal itching, vaginal dryness, vaginal discharge, urinary urgency, urinary incontinence, urinary frequency, pelvic pain, painful urination, difficulty urinating or hot flashes Skin Skin/Breast: Denies nipple discharge, breast skin changes, breast pain, breast lump or new lesions Psych Psych: Denies difficulty concentrating or change in sex drive Exam Const General: cooperative, healthy appearing, comfortable, no acute distress, well developed, well groomed [facility] Head: normal to inspection, normocephalic Ears: hearing grossly normal bilaterally, external ears normal Nose: external nose normal Face and sinus: normal facial exam Neck Neck: normal visual inspection, full ROM, no lymphadenopathy Thyroid: thyroid normal Chest Chest palpation AND inspection: normal inspection of the chest Breast inspection: normal inspection of the breasts, normal inspection of the axillae Breast palpation: normal palpation of the breasts, normal palpation of the axillae, no axillary lymphadenopathy Resp Effort AND Inspection: normal respiratory effort GI Inspection: normal to inspection, non-distended Palpation: no guarding, soft, no hepatosplenomegaly General: bladder normal to palpation External Female Exam: normal appearance of the urethra, no lesions, other (lichenification of perineal body) Urethra: normal appearance of the urethra, normal palpation Speculum Exam - Vagina: normal appearance of the vagina, normal vaginal discharge Speculum Exam - Cervix: normal appearance of the cervix, no cervical discharge, no lesions, nontender Bimanual Exam- Vagina AND Uterus: No cervical tenderness, normal bimanual exam, uterine size normal, bladder normal to palpation, uterine mobility normal, uterine consistency normal, uterus non-tender, no cervical motion tenderness Bimanual Exam- Adnexa, other: normal adnexae, no adnexal masses, adnexae non-tender, pelvic support normal Pelvic Support: normal Skin General: no rashes or lesions noted Neuro General: alert, moves all extremities, no focal motor deficits Extrem General: no pedal edema, normal to inspection Psych Appearance: grossly normal Mental Status: mental status grossly normal Affect: normal affect Speech and Movement: speech and movement normal Attitude: cooperative Assessment AND Plan Problems 1. Encounter for gynecological examination with abnormal finding Z01.411; Z01.411 2. Lichen sclerosus et atrophicus L90.0 clobetasol 3. Encounter for screening mammogram for breast cancer Z12.31 Plan Cervical cancer screening: up to date Breast cancer screening: mamm ordered other health maintenance examination reviewed and up to date. Encouraged maintenance of a healthy weight and active lifestyle and handout given. Calcium/vitamin D supplementation information provided. Follow up in one year for annual health maintenance exam or sooner if needed. Plan Detail Follow Up 1 Year 12/18/17 0815 <Electronically signed by Niki Taveras MD> Date Niki Taveras MD Cosigner Signature: Date (if applicable) CC: ALLERGIES ALLERGIES DATE TYPE / NAME / CODE REACTION SEVERITY SOURCE CODE Drug lisinopril/[id number](R TONGUE SWELLING MO Raymond 9 Allergy/4 XNORM) Community [id number]( [facility] SNOMED Repository CT) Drug atenolol/[id number](RXN TONGUE SWELLING SV Raymond 9 Allergy/4 ORM) Community [id number]( [facility] SNOMED Repository CT) Drug amoxicillin/[id number]( TONGUE SWELLING SV Raymond 9 Allergy/4 RXNORM) Community [id number]( [facility] SNOMED Repository CT) DRUG AZITHROMYCIN INTOLERANCE Moya 6 INGREDI/4 Clinic Main [id number]( [place] SNOMED Repository CT) DRUG FLUCONAZOLE RASH Moya 4 INGREDI/4 Clinic Main [id number]( [place] SNOMED Repository CT) DRUG IRBESARTAN INTOLERANCE Moya 3 INGREDI/4 Clinic Main [id number]( [place] SNOMED Repository CT) DRUG ACEBUTOLOL Mental Chg Moya 3 INGREDI/4 Clinic Main [id number]( [place] SNOMED Repository CT) DRUG LEVOFLOXACIN Mental Chg Moya 3 INGREDI/4 Clinic Main [id number]( [place] SNOMED Repository CT) DRUG HYDROXYCHLOROQUINE INTOLERANCE Moya 0 INGREDI/4 SULFATE Clinic Main [id number]( [place] SNOMED Repository CT) DRUG LATEX Moya 9 INGREDI/4 Clinic Main [id number]( [place] SNOMED Repository CT) DRUG ATENOLOL SWELLING Moya 9 INGREDI/4 Clinic Main [id number]( [place] SNOMED Repository CT) DRUG DOXYCYCLINE SWELLING Moya 8 INGREDI/4 Clinic Main [id number]( [place] SNOMED Repository CT) DRUG LISINOPRIL GI UPSET Grawn 8 INGREDI/4 Clinic Main [id number]( [place] SNOMED Repository CT) DRUG AMOXICILLIN [place] 8 INGREDI/4 Clinic Main [id number]( [place] SNOMED Repository CT) Chemical/ ADHESIVE TAPE (ROSINS) SWELLING [place] 7 [phone] Clinic Main (SNOMED [place] CT) Repository DRUG/4195 NITROFURANTOIN SWELLING Grawn 6 77519(SNO MONOHYD/M-CRYST Clinic Main MED CT) [place] Repository DRUG AMPICILLIN DIARRHEA High [place] 5 INGREDI/4 [facility] Main [id number]( [place] SNOMED Repository CT) ENCOUNTERS ENCOUNTERS ADMIT/DISCHARGE ACCOUNT NUMBER ADMITTING ENCOUNTER LOCATION SOURCE CLASS 05/19/2018/05/19/19 [id number] Emergency [facility] ding:ED Repository 04/19/2018 [id number] [facility] ding:OPBI Repository 03/26/2018/03/26/20 [id number] Emergency [address] ding:ED Repository 03/17/2018 [id number] [facility] ding:LAB.FUT Repository URE 09/23/2017/09/25/19 [id number] Ambulatory [address] [place] Repository 07/29/2017/07/30/19 [id number] Ambulatory BMSBuilding: Fany 18 BMS.[facility] Repository 07/08/2017/07/09/19 [id number] Ambulatory AULTMANBuild [place] 18 ing:[facility] Repository 05/27/2017 [id number] [facility] ding:LAB.FUT Repository URE 04/16/2017/04/16/20 [id number] Ambulatory BMSBuilding: Fany 17 BMS.[facility] Repository PAYERS PAYERS ENCOUNTER GUARANTOR PAYER SUBSCRIBER SOURCE 05/19/2018 KENNETH Win Primary Insurance:SELF ADELAIDA [id number] [facility] Stephanie ERICKSON: [facility]: [id number], [id number] Repository [place] [address]Cxm: Date:[id number] [facility] () INCPO [address] [place] [address] 74[address]JR: 05/19/2018 Secondary BATSHEVA Raymond Insurance:ANTHEMPolicy YODERDOB: [facility] Number: [id number] Hospital [id number] Repository Date:9907-57-49IG [address] [place] [address] 93[address]SY: 05/19/2018 Tertiary NOT GIVENUNK Fany Insurance:SELF PAY [facility] Number: Effective Repository Date:2018-05-19 04/19/2018 BATSHEVA Primary BATSHEVA Raymond [id number] Insurance:ANTHEMPolicy YODERDOB: [facility] Number: [id number] [id number] Repository [place] [address]Nan: Date:9932-03-75MW [address], [facility]) [address]GI: 04/19/2018 Secondary NOT GIVENUNK Raymond Insurance:SELF PAY [facility] Number: Effective Repository Date:2018-03-07 03/26/2018 BATSHEVA Primary BATSHEVA Fany [id number] Insurance:ANTHEMPolicy YODERDOB: [facility] Number: [id number] [facility] [id number] Repository [place] [address]Gqo: Date:0581-71-77AM [address], [facility]) [address]TO: 03/26/2018 Secondary NOT GIVENUNK Fany Insurance:SELF PAY [facility] Number: Effective Repository Date:2018-03-26 03/17/2018 BATSHEVA Primary BATSHEVA Raymond [id number] Insurance:ANTHEMPolicy YODERDOB: [facility] Number: [id number] [facility] [id number] Repository [place] [address]Mte: Date:9321-41-02RG [address] () [address]BM: 03/17/2018 Secondary NOT GIVENUNK Raymond Insurance:SELF PAY [facility] Number: Effective Repository Date:2017-12-17 07/29/2017 Kenneth Win Primary ADELAIDA R Fany [id number] Insurance:ANTHEMPolicy YODERDOB: [facility] [place] Number: [id number] Hospital Pier[place], [id number] [place]ository [place] [address]Axx: Date:7806-66-07MX [address] () [address]BC: 07/29/2017 Secondary NOT GIVENUNK Fany Insurance:SELF PAY [facility] Number: Effective Repository Date:2017-07-29 07/08/2017 ADELAIDA R Primary KENNETH YODERDOB: [employer] YODERDOB: Insurance:ANTHEM BLUE [id number] [facility] [address] Repository SM[place]ER Number: MING GARRISON, [id number]: (330) [place] [address]Njl: Date:2017-07-04 [phone] ( [id number] ()Tel: 216) ()Tel: (330) Name:[facility] [place] [phone] () [phone] () JARAD Mendoza [address]JE: 05/27/2017 Kenneth Win Primary ADELAIDA R Raymond [id number] Insurance:ANTHEMPolicy [facility]: [id number] [facility] [place], [id number] Repository [place] [address]Jlh: Date:6623-97-02BW [address] () [address]EV: 05/27/2017 Secondary NOT GIVENUNK Raymond Insurance:SELF PAY [facility] Number: Effective Repository Date:2017-05-27 04/16/2017 Kenneth Win Primary ADELAIDA Soares [id number] Insurance:ANTHEMPolicy YODERDOB: [facility] Number: [id number] Hospital Rosalinamitcortes [id number] Repository [place] [address]Kwt: Date:8421-47-11BG [address]OPWFIVD, [place] () [address]KO: 04/16/2017 Secondary NOT GIVENUNK Raymond Insurance:SELF PAY [facility] Number: Effective Repository Date:2017-04-07
== END ==
PROVIDERS: Family Provider Family Medicine; PCP Family Medicine; Visit Provider Obstetrics & Gynecology
DX: Z12.31 Encounter for screening mammogram for malignant neoplasm of breast (principal)
CPT/HCPCS: 77063; 77067

== ENCOUNTER 2018-05-19 11:39 | Emergency (ER) | payer OTHER, BC, SELFPAY ==
[2018-05-19 11:41] VITALS: BP 205/111; PULSE 67; RESP 18; TEMP 36.4; O2SAT 99; BMI 27.4
--- NOTE | 2018-05-19 12:15 | RAD_ITS ---
STUDY: X-RAY - LEFT HUMERUS REASON FOR EXAM: Female, 62 years old. Pain in the proximal humerus following a fall. TECHNIQUE: 2 view(s) of the humerus. COMPARISON: None. FINDINGS: Nondisplaced transverse fracture of the surgical neck of the humerus with extension into the greater tuberosity. Soft tissue swelling. RAD/Humerus min 2 Views IMPRESSION: Nondisplaced transverse fracture of the surgical neck of the humerus with extension to the greater tuberosity. Overlying soft tissue swelling. Electronically Signed: Nehemiah Holland MD at 12:37 EST Tel [phone], Service support ,
--- NOTE | 2018-05-19 13:09 | ED.VISSUMM ---
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 She is right-hand dominant. Reports she is prior to [facility] department he tripped over originally carpet and injured her left shoulder. She reports that she has pain here that is 10 out of 10 severity. She denies any other injuries. No blow to the head or loss of consciousness. She is not on blood thinners. No neck, back, wrist, or hip pain. Physical Examination: Vitals: Stable. Afebrile. Neck: No vertebral tenderness. Full ROM without difficulty. Cleared by NEXUS criteria. Back: No vertebral tenderness. General: A&O x 3. NAD. Cardiovascular exam: Regular rate and rhythm, no murmur, rub or gallop. Respiratory exam: Chest nontender. No crepitus. Clear to auscultation bilaterally. No wheezes or stridor. Abdominal exam: Soft, nontender, nondistended, normal bowel sounds. No pain in RUQ or LUQ specifically. No peritoneal signs. Extremity: Severe tenderness palpation over the left proximal humerus. She has decreased range of motion secondary to pain. She is neurovascular intact distally this. Test Results: Left humerus x-ray shows a nondisplaced transverse fracture of the surgical neck with extension to the greater tuberosity. Emergency Department Course and Treatment: Patient was treated with fentanyl IM and was placed in a sling. Treatment Plan: Patient will be discharged with Zofran, Percocet, and Colace. [facility] 1 week for another exam. Return to the emergency department for any worsening symptoms. Disposition: To home in improved and stable condition. Impression: 1. Left proximal humerus fracture. This note was generated with [employer] dictation software. It may contain incorrect words, spelling, and punctuation that were not noted in review of the chart prior to signing ED Disposition - Plan for ED Patient: Disposition: Home or Assisted Living Chief Complaint: Fall Instructions: ED Fx Shoulder Prescriptions: Oxycodone HCl/Acetaminophen [Percocet 5/325] 1 tablet PO Q6H PRN PRN 5 Days #20 tablet PRN Reason: Pain Ondansetron [Zofran Odt] 4 mg PO Q8H PRN PRN #10 tablet PRN Reason: Nausea Docusate Sodium [Colace] 100 mg PO DAILY #20 capsule Referrals: [facility] [GROUP OF PHYSICIANS] - 1 Week Josiah Colbert DO [STAFF PHYSICIAN] - 1 Week
[2018-05-19] MEDS: fentaNYL 100 MCG/2 ML Ampul 50 MCG IM (13:31)
[2018-05-19 13:57] VITALS: BP 154/84; PULSE 61; RESP 18; O2SAT 98
== END 2018-05-19 13:58 | disposition home or self-care (01) ==
LOC: ED 12:41
PROVIDERS: Emergency Provider Emergency Medicine; Family Provider Family Medicine; PCP Family Medicine
DX: S42.215A Unspecified nondisplaced fracture of surgical neck of left humerus, initial encounter for closed fracture (principal); S42.255A Nondisplaced fracture of greater tuberosity of left humerus, initial encounter for closed fracture; W18.09XA Striking against other object with subsequent fall, initial encounter; Y93.9 Activity, unspecified; Y92.9 Unspecified place or not applicable; R09.81 Nasal congestion; I10 Essential (primary) hypertension; Z79.899 Other long term (current) drug therapy
CPT/HCPCS: 73060; 96372; 99283

== ENCOUNTER → 2018-10-22 | Outpatient (CLI) | payer BC, SELFPAY ==
[2018-10-22 17:58] LABS: ALB/GLOB Ratio 0.9 RATIO (0.9-2.4); AST(SGOT) 26 U/L (15-37); Alanine Aminotransfer ALT/SGPT 43 U/L (13-56); Albumin, Serum 3.9 g/dL (3.2-5.0); Alkaline Phosphatase 80 U/L (45-117); Anion Gap 5 (5-15); BUN 12 mg/dL (7-18); BUN/Creat Ratio 14.8 RATIO (10-20); Calcium,Total 8.9 mg/dL (8.5-10.1); Chloride 106 mmol/L (98-107); Creatinine, Serum 0.81 mg/dL (0.55-1.02); EST Glomerular Filtration Rate 76 mL/min (>60); Est Glom Filt Rate - Afr Amer 92 mL/min (>60); Globulin 4.3 g/dL (2.2-4.2); Glucose 85 mg/dL (74-106); Potassium 3.8 mmol/L (3.5-5.1); Protein, Total 8.2 g/dL (6.4-8.2); Sodium Level 138 mmol/L (136-145)
== END | disposition home or self-care (01) ==
LOC: BFHLAB 16:42
PROVIDERS: Family Provider Family Medicine; PCP Family Medicine; Visit Provider Family Medicine
DX: R60.9 Edema, unspecified (principal); R10.9 Unspecified abdominal pain
CPT/HCPCS: 36415; 80053

== ENCOUNTER → 2019-01-30 07:40 | Outpatient (CLI) | payer BC, SELFPAY ==
--- NOTE | 2019-01-30 07:42 | RDU_ITS ---
Reason For Study: Worsening HTN Right Renal Artery Left Renal Artery Right renal artery ostium 59.7/16.7 Left renal artery ostium 83.8/27.2 RSV/EDV. PSV/EDV. Right renal artery proximal Left renal artery proximal PSV/EDV 147.5/44 PSV/EDV. 133.7/37.1 . Right renal artery mid 179.8/66.6 Left renal artery mid 161.6/45.2 PSV/EDV. PSV/EDV . Right renal artery distal Left renal artery distal 112.3/33.9 114.4/39.4 PSV/EDV. PSV/EDV. Right RAR 1.93. Left RAR 1.74. Right Renal Parenchyma Left Renal Parenchyma Upper Pole Medula 28/9.8 PSV/EDV. Left upper pole medulla 37.2/13.9 Right upper pole medulla EDR 0.35 . PSV/EDV . Right upper pole medulla R.I. Left upper pole medulla EDR 0.37 . 0.65 . Left upper pole medulla R.I. 0.63 . Upper Juan J Cortx 21.4/8.7 PSV/EDV. UP Cortex 27.3/9.1 PSV/EDV. Right upper pole cortex EDR 0.41 . Left upper pole cortex EDR 0.33 . Right upper pole cortex R.I. 0.59 . Left upper pole cortex R.I. 0.67 . Right lower Pole medulla 29.1/10.9 Left lower Pole medulla 27.3/6.4 PSV/EDV . PSV/EDV . Right lower pole medulla EDR 0.37 . Left lower pole medulla EDR 0.23 . Right lower pole medulla R.I. Left lower pole medulla R.I. 0.77 . 0.62 . Lower Pole Cortx 16.8/6 PSV/EDV. Lower Pole Cortex 18.1/7.6 PSV/EDV. Left lower pole cortex EDR 0.36 . Right lower pole cortex EDR 0.42 . Left lower pole cortex R.I. 0.65 . Right lower pole cortex R.I. 0.58 . Left Renal Hilar Right Renal Hilar LT Hilar avg 42.4/13.8 PSV/EDV . Right Hilar avg 51.7/16.1 PSV/EDV. Left hilar acceleration time 40 Right hilar acceleration time 30 m/sec. m/sec. Left Renal Dimensions Right Renal Dimensions Left kidney size 11.76 cm . Right kidney size 9.92 cm . Left cortical dimension 2.38 cm . Right cortical dimension 2.13 cm . Aorta Proximal abdominal aorta 1.23 x 1.25 cm . Proximal abdominal aorta peak systolic velocity is 64.6 cm/sec . Distal abdominal aorta 0.96 x 0.93 cm . Distal abdominal aorta peak systolic velocity is 92.9 cm/sec . Interpretation Summary Dimensions of the intra-abdominal aorta appear normal, without evidence of aneurysmal dilatation. Renal artery velocities are bilaterally normal. Acceleration times are normal bilaterally. Renal- aortic ratios are also bilaterally normal. There is no evidence of hemodynamically significant renal artery stenosis on either side. Renovascular resistance appears to be bilaterally normal . The right cortical dimension is increased. The left cortical dimension is increased. Kidneys are normal in size bilaterally, though the right kidney is more than one centimeter smaller than the left kidney. Ordering Physician: Chauncey Roman Referring Physician: Geno Crocker Performed By: Renata Rivera RVT
== END ==
PROVIDERS: Family Provider Family Medicine; PCP Family Medicine; Referring Provider Family Medicine; Visit Provider Family Medicine
DX: I10 Essential (primary) hypertension (principal)
CPT/HCPCS: 93975

== ENCOUNTER 2019-03-05 13:00 | Outpatient (RCR) | payer OTHER, SELFPAY ==
--- NOTE | 2019-01-22 07:58 | HP.PTEVAL ---
Patient's Visit Information CANDI HODGSON is a 63 year old F referred to Physical Therapy by Robbie Green MD with a diagnosis of Left shoulder FX. 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 She states that she fell at work on May 19 on a rug and landed on her outstretched arms. She went to [facility] were xrays revealed fracture left shoulder. She was then referred to Dr Colbert who kept her in a sling for 8 weeks. She has tried a conservative bout of therapy at [place] as it is close to her employer. 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 - Pain Left Shoulder Pain Intensity (Out of 10): 0 Pain Intensity Range: 0, 5 Comment: 0 at rest increases to 5/10 with activity - Objective PROM shd flexion 120. Shd Abduction 110. Ext Rotation 20. Int Rotation NT at this time. MMT R ext/int 14/20.8 L 11/12. Automatic Lathe Operator strength was 40 lbs right 35 Left for this right hand dominant individual. Automatic Lathe Operator & MMT is lower than expected for a patient her age. Negative sensory changes over deltoid with testing but patient reports subjective altered sensory chages in hand and deltoid. 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) - Rehabilitation Potential Physical Therapy Diagnosis: Symtoms consistent with should fx and frozen shoulder, decreased ROM Rehabilitation Potential: Good - Anticipated Interventions Patient/Client Instruction: Educate patient on: Condition, Plan of Care For the Purpose of:: To increase ROM, To improve ability to perform ADL's Therapeutic Exercise to Include: Strength training, Coordination, Passive ROM, Active ROM For the Purpose of:: To increase ROM, To improve ability to perform ADL's, To assume or resume ADL's Manual Therapy Techniques to Include: Massage, Mobilization, Passive ROM For the Purpose of:: To increase ROM, To improve ability to perform ADL's IF ES: Yes For the Purpose of:: To decrease pain, To increase ROM Thank you for the opportunity to evaluate your patient. For Medicare and Medicare HMO plans, please review the plan of care and approve it. It will need to be FAXED BACK to us at [phone] for Medicare purposes. For Medicare only, by signing this I certify the plan of care. Please let me know if there are questions or concerns regarding this plan of care. Physician Signature: Date:
--- NOTE | 2019-03-05 15:28 | HP.PTDCSUM ---
HP - PT D/C Summary It has been my pleasure to treat CANDI VAZQUEZ under orders from Robbie Green MD, for the diagnosis of Left shoulder FX (May 19), No RTC tear, AVN and Frozen Shld for a total of 8 visit(s). Discharge Date: 03/05/19 Please see the following information for a summary of their discharge status. - Subjective Subjective: Pt called and said she had increased pain in her shoulder. This flaired up about a week ago. I feel like the cortisone shot has worn off. The pain is in my should but at times goes below the level of the elbow. - Pain Left Shoulder Pain Intensity (Out of 10): 2 - Objective Objective/Function: shd flexion 155. shd abd 145. ext 50. 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 or additional visits - D/C Information Discharge Comments: Asked patient to follow up with Dr Colbert as Dr Green has deferred being her physician of record. We have seen her for the [address] green requested. I think that she can benefit from additional visits. I'd like to rule an axillary irritation. Will await Dr Gordon suggestions. If there are questions or concerns regarding this patient's physical therapy, please feel free to call me at [phone]. Thank you for the referral of this patient. Sincerely, Martín Cho, PT, PLACIDO, SCS, CSCS
== END 2019-03-05 19:00 | disposition home or self-care (01) ==
LOC: PT 13:00
PROVIDERS: Family Provider Family Medicine; PCP Family Medicine; Referring Provider Orthopaedic Surgery; Visit Provider Orthopaedic Surgery
DX: S42.202D Unspecified fracture of upper end of left humerus, subsequent encounter for fracture with routine healing (principal); M87.00 Idiopathic aseptic necrosis of unspecified bone
CPT/HCPCS: 97110; 97140; 97162

== ENCOUNTER → 2019-12-28 | Outpatient (CLI) | payer BC, SELFPAY ==
[2019-12-28 11:16] VITALS: BMI 27.4
[2020-01-01 14:25] LABS: HPV APTIMA, High Risk Negative (Negative)
== END | disposition home or self-care (01) ==
LOC: LABSPEC 16:38
PROVIDERS: PCP Family Medicine; Visit Provider Obstetrics & Gynecology
DX: Z12.4 Encounter for screening for malignant neoplasm of cervix (principal)
CPT/HCPCS: 87624; 88175; G0145

== ENCOUNTER 2020-01-12 10:00 | Outpatient (RCR) | payer OTHER, BC, SELFPAY ==
--- NOTE | 2020-01-12 11:22 | HP.PTDCSUM_ITS ---
It has been my pleasure to treat ADELAIDA VAZQUEZ referred by Dr. Triston Garcia MD, with the diagnosis of L AVN, Adhesive capulisitis, arithritis for a total of 27 visit(s). Discharge Date: 01/12/20 Please see the following information for a summary of their discharge status. Subjective: I see Dr Landrum at 3:30 today. I worked my shoulder pretty good this weekend. I took time off to work at [employer] next week. Left Shoulder Pain Intensity (Out of 10): 0 % Improvement: 90 Objective/Function: MMT Int Ext. R 27.3/ 20.3. L 21.8/ 20.8. Shd flexion 160. abduction 158. Ext 72 int L3 vs T7. All gradually improving with a soft end feel so I dont think she has plateaued. Quick DASh scores have also improved. Goal 1:: Understand the healing process and precautions Goal Progress: Goal Met Goal 2:: Phase 1 ext 15-20 ext 100 shd flexion abd Goal Progress: Goal Met Goal 3:: Continue with phased progress as tolerated and physician directed. Plan: DC Discharge Comments: Adelaida has recovered nicely despite her long process. I think she will continue to improve. She is becoming a [employer] member so we can help her along the way if she needs it. If there are questions or concerns regarding this patient's physical therapy, please feel free to call me at [phone]. Thank you for the referral of this patient. Sincerely, Martín Cho, PT, PLACIDO, SCS, CSCS
== END 2020-01-12 19:00 | disposition home or self-care (01) ==
LOC: PT 10:00
PROVIDERS: PCP Family Medicine; Referring Provider Orthopaedic Surgery; Visit Provider Orthopaedic Surgery
DX: M75.02 Adhesive capsulitis of left shoulder (principal); Z96.612 Presence of left artificial shoulder joint
CPT/HCPCS: 97014; 97110; 97140; 97161; 97530; G0283

== ENCOUNTER → 2020-01-27 07:13 | Outpatient (CLI) | payer BC, SELFPAY ==
[2019-12-28 11:16] VITALS: BMI 27.4
--- NOTE | 2020-01-27 07:13 | BI_ITS ---
MAMMOGRAPHY - BILATERAL SCREENING REASON FOR EXAM: Female, 64 years old. Routine annual screening examination. PERTINENT HISTORY: Non-contributory. Remote right ultrasound-guided breast biopsy. Left stereotactic breast biopsy. TECHNIQUE: Digital bilateral breast johnathan (3D mammographic acquisition) in the CC and MLO projections. 2-D mediolateral oblique (MLO) and craniocaudad (CC) views of both breasts were obtained. CAD: Full Field Digital Mammography with Computer Added Detection was performed. COMPARISON: Comparison is made with prior study dated 04/19/2018 and 11/05/2016. FINDINGS: Breast Composition: The breasts are heterogeneously dense, which may obscure small masses. There are no dominant masses or suspicious calcifications. A tissue clip marker is seen in the deep retroareolar region of the left breast as well as in the upper lateral portion of the right breast. Stable asymmetrical thickening of the right areolar region as compared to the left side. No other significant abnormalities are identified. There has been no significant change since the prior study. BI/SCREEN MAMM (CAD) W/JOHNATHAN BILAT IMPRESSION: Stable bilateral screening mammogram. Yearly follow-up mammogram recommended. (A) ASSESSMENT CATEGORY: BIRADS Category 2: Benign. A letter regarding these results will be sent to the patient by the facility within 30 days. Approximately 10% of breast cancers are not detected by mammography. A normal mammogram should not delay biopsy of a clinically suspicious abnormality. [id number] Electronically Signed: Nehemiah Holland, at 9:35 EDT , Service support ,
== END ==
PROVIDERS: PCP Family Medicine; Referring Provider Obstetrics & Gynecology; Visit Provider Obstetrics & Gynecology
DX: Z12.31 Encounter for screening mammogram for malignant neoplasm of breast (principal)
CPT/HCPCS: 77063; 77067

== ENCOUNTER → 2020-04-12 09:49 | Outpatient (CLI) | payer BC, SELFPAY ==
[2019-12-28 11:16] VITALS: BMI 27.4
[2020-04-12 12:11] LABS: Absolute Lymphocyte Count 1.87 X10^3/uL (0.83-4.51); Absolute Neutrophil Count 4.4 X10^3/uL (2.0-7.7); Basophil# 0.12 X10^3/uL; Basophil% 1.7 % (0-1); Eosinophil# 0.13 X10^3/uL; Eosinophils% 1.9 % (0-5); Hematocrit 42.7 % (37-47); Hemoglobin 15.2 g/dL (12.0-15.0); Lymphocyte # 1.87 X10^3/ul (4.0); Lymphocyte % 26.7 % (19-41); Mean Corp Hgb Conc 35.6 g/dL (32-36); Mean Corpuscular Hgb 33.2 pg (27.0-32.0); Mean Corpuscular Volume 93.2 fL (81-99); Mean Platelet Vol. 12.4 fl (6.2-12.0); Monocyte# 0.44 X10^3/uL; Monocyte% 6.3 % (0-10); NRBC Flagged by Analyzer 0 % (0-5); Neutrophil # 4.44 X10^3/uL (2.7-7.7); Neutrophil % 63.3 % (47-70); Platelet Count 251 K/mm3 (150-450); RBC Distribution Width CV 11.9 % (11.6-14.6); RBC Distribution Width SD 40.8 fl (35.1-43.9); Red Blood Count 4.58 M/mm3 (4.2-5.4)
[2020-04-12 12:24] LABS: ALB/GLOB Ratio 0.8 RATIO (0.9-2.4); AST(SGOT) 26 U/L (15-37); Alanine Aminotransfer ALT/SGPT 44 U/L (13-56); Albumin, Serum 3.6 g/dL (3.2-5.0); Alkaline Phosphatase 71 U/L (45-117); Anion Gap 6 (5-15); BUN 10 mg/dL (7-18); BUN/Creat Ratio 12.4 RATIO (10-20); Calcium,Total 9.1 mg/dL (8.5-10.1); Chloride 107 mmol/L (98-107); Cholesterol 168 mg/dL (200); Creatinine, Serum 0.81 mg/dL (0.55-1.02); EST Glomerular Filtration Rate 76 mL/min (>60); Est Glom Filt Rate - Afr Amer 92 mL/min (>60); Globulin 4.3 g/dL (2.2-4.2); Glucose 101 mg/dL (74-106); High Density Lipoprotein 39 mg/dL; Protein, Total 7.9 g/dL (6.4-8.2); Sodium Level 140 mmol/L (136-145); Triglycerides 144 mg/dL; Very Low Density Lipoprotein 29 mg/dL (5-40)
[2020-04-12 13:02] LABS: Hemoglobin A1c 5.1 % (3.8-5.6)
== END ==
PROVIDERS: PCP Family Medicine; Visit Provider Family Medicine
DX: I10 Essential (primary) hypertension (principal); Z51.81 Encounter for therapeutic drug level monitoring; E78.5 Hyperlipidemia, unspecified; R73.01 Impaired fasting glucose
CPT/HCPCS: 36415; 80053; 80061; 83036; 85025

== ENCOUNTER → 2021-01-27 09:52 | Outpatient (CLI) | payer BC, SELFPAY ==
[2019-12-28 11:16] VITALS: BMI 27.4
--- NOTE | 2021-01-27 09:55 | BI_ITS ---
MAMMOGRAPHY - BILATERAL SCREENING REASON FOR EXAM: Female, 65 years old. Routine annual screening examination. PERTINENT HISTORY: Non-contributory. Remote left stereotactic breast biopsy. TECHNIQUE: Digital bilateral breast johnathan (3D mammographic acquisition) in the CC and MLO projections. 2-D mediolateral oblique (MLO) and craniocaudad (CC) views of both breasts were obtained. CAD: Full Field Digital Mammography with Computer Added Detection was performed. COMPARISON: Comparison is made with prior study dated 01/27/2020 and 04/19/2018. FINDINGS: Breast Composition: The breasts are heterogeneously dense, which may obscure small masses. There are no dominant masses or suspicious calcifications. Once again, a tissue clip marker is seen in the deep retroareolar region of the left breast as well as a tissue clip marker in the upper lateral portion of the right breast. Stable thickening and increased density of the right periareolar region. No other significant abnormalities are identified. There has been no significant change since the prior study. BI/SCRN MAMM (CAD)W/JOHNATHAN BILAT IMPRESSION: Stable bilateral screening mammogram. Yearly follow-up mammogram recommended. (A) ASSESSMENT CATEGORY: BIRADS Category 2: Benign. A letter regarding these results will be sent to the patient by the facility within 30 days. Approximately 10% of breast cancers are not detected by mammography. A normal mammogram should not delay biopsy of a clinically suspicious abnormality. [id number] Electronically Signed: Nehemiah Holland MD at 10:52 EDT , Service support ,
== END ==
PROVIDERS: PCP Family Medicine; Referring Provider Obstetrics & Gynecology; Visit Provider Obstetrics & Gynecology
DX: Z12.31 Encounter for screening mammogram for malignant neoplasm of breast (principal)
CPT/HCPCS: 77063; 77067

== ENCOUNTER 2021-05-16 14:45 | Outpatient (CLI) | payer BC, SELFPAY ==
[2021-05-16 14:47] VITALS: BP 182/99; PULSE 81; RESP 16; TEMP 36.9; O2SAT 98; BMI 28.3
[2021-05-16] MEDS: 0.9% Saline Lock 10 ML Syringe IV (14:47)
[2021-05-16 15:40] VITALS: BP 194/103; PULSE 73; RESP 16; TEMP 37.2; O2SAT 100
[2021-05-16 16:33] VITALS: BP 168/96; PULSE 72; RESP 16; TEMP 36.9; O2SAT 99
== END 2021-05-16 23:59 | disposition home or self-care (01) ==
LOC: MS3OUT 14:46 → MS3 14:46
PROVIDERS: PCP Family Medicine; Referring Provider Nurse Practitioner Adult Health; Visit Provider Nurse Practitioner Adult Health
DX: U07.1 COVID-19 (principal)
CPT/HCPCS: J7050; M0243; A4216; Q0244

== ENCOUNTER → 2021-09-04 | Outpatient (CLI) | payer BC, SELFPAY | END | disposition home or self-care (01) | LOC: LAB.FUTURE 14:08 → LABSPEC 14:11 | PROVIDERS: PCP Family Medicine; Visit Provider Family Medicine | DX: Z20.828 Contact with and (suspected) exposure to other viral communicable diseases (principal) | CPT/HCPCS: 87635; U0003; U0005 ==

== ENCOUNTER → 2022-02-08 | Outpatient (CLI) | payer BC, SELFPAY ==
--- NOTE | 2022-02-08 12:53 | BI_ITS ---
MAMMOGRAPHY - BILATERAL SCREENING REASON FOR EXAM: Female, 66 years old. Routine annual screening examination. PERTINENT HISTORY: Non-contributory. Prior left stereotactic breast biopsy and left ultrasound-guided breast biopsy. TECHNIQUE: Digital bilateral breast johnathan (3D mammographic acquisition) in the CC and MLO projections. 2-D mediolateral oblique (MLO) and craniocaudad (CC) views of both breasts were obtained. CAD: Full Field Digital Mammography with Computer Added Detection was performed. COMPARISON: Comparison is made with prior examination of 01/27/2021 and 01/27/2020. FINDINGS: Breast Composition: The breasts are heterogeneously dense, which may obscure small masses. There are no dominant masses or suspicious calcifications. The patient clip marker is seen in the central retroareolar region of the left breast. A tissue clip marker is also seen in the central anterior lateral aspect of the right breast. Stable appearance of the periareolar region with the focal thickening. No other significant abnormalities are identified. There has been no significant change since the prior study. BI/SCRN MAMM (CAD)W/JOHNATHAN BILAT IMPRESSION: Stable bilateral screening mammogram. Yearly follow-up mammogram recommended. (A) ASSESSMENT CATEGORY: BIRADS Category 2: Benign. A letter regarding these results will be sent to the patient by the facility within 30 days. Approximately 10% of breast cancers are not detected by mammography. A normal mammogram should not delay biopsy of a clinically suspicious abnormality. [id number] Electronically Signed: Nehemiah Holland MD at 14:05 EDT ,
--- NOTE | 2022-02-08 13:00 | BD_ITS ---
STUDY: DUAL ENERGY X-RAY ABSORPTIOMETRY / DXA REASON FOR EXAM: Female, 66 years old. Z780. Patient is postmenopausal. TECHNIQUE: Bone Mineral Density (BMD) measurements of lumbar spine and bilateral hips were obtained. COMPARISON: None. FINDINGS: Lumbar Spine (L1-L4): g/cm2 (0.824) / T-score (-2.0) / Z-score (-0.2) Findings are suggestive of osteopenia with a moderate fracture risk. Left Femur Total: g/cm2 (0.776) / T-score (-1.4) / Z-score (-0.1) Left Femoral Neck: g/cm2 (0.536) / T-score (-2.8) / Z-score (-1.2) Right Femur Total: g/cm2 (0.767) / T-score (-1.4) / Z-score (-0.1) Right Femoral Neck: g/cm2 (0.550) / T-score (-2.7) / Z-score (-1.1) BD/Dexa Bone Density Study IMPRESSION: The patient is considered osteoporotic as outlined below according to World Koffi Organization (WHO) criteria with a high fracture risk. Reference Information: The T-score is the number of standard deviations above or below the standard which is normal for young adults at their peak bone mineral density. The World Health Organization (WHO) interprets the T-scores as follows: Above -1 Normal bone density Between -1 and -2.5 Osteopenia Equal to / or below -2.5 Osteoporosis As a practical clinical guideline, osteopenia may be graded as follows: Mild -1 through -1.5 Moderate -1.6 through -2.0 Severe -2.1 through -2.4 The Z-score is the number of standard deviations above or below age-matched controls. A Z-score of less than -1.5 would be considered abnormal. References: 1. NIH Osteoporosis and Related Bone Diseases www osteo.org 2. International Society for Clinical Densitometry www iscd.org 3. National Osteoporosis Foundation www nof.org Electronically Signed: Nehemiah Holland MD at 9:52 EDT ,
== END | disposition home or self-care (01) ==
LOC: OPBD 12:50
PROVIDERS: PCP Family Medicine; Visit Provider Obstetrics & Gynecology
DX: Z78.0 Asymptomatic menopausal state (principal); Z12.31 Encounter for screening mammogram for malignant neoplasm of breast
CPT/HCPCS: 77063; 77067; 77080

== ENCOUNTER → 2022-07-30 | Outpatient (CLI) | payer BC, SELFPAY ==
[2022-07-30 12:18] LABS: Absolute Lymphocyte Count 2.14 X10^3/uL (0.83-4.51); Absolute Neutrophil Count 5.1 X10^3/uL (2.0-7.7); Basophil# 0.11 X10^3/uL; Basophil% 1.4 % (0-1); Eosinophils% 1.2 % (0-5); Hematocrit 42.3 % (37-47); Lymphocyte # 2.14 X10^3/ul (0.83-4.51); Lymphocyte % 26.7 % (19-41); Mean Corp Hgb Conc 35.5 g/dL (32-36); Mean Corpuscular Hgb 33.2 pg (27.0-32.0); Mean Corpuscular Volume 93.6 fL (81-99); Mean Platelet Vol. 12.4 fl (6.2-12.0); Monocyte# 0.56 X10^3/uL; NRBC Flagged by Analyzer 0 % (0-5); Neutrophil # 5.08 X10^3/uL (2.7-7.7); Neutrophil % 63.5 % (47-70); Platelet Count 270 K/mm3 (150-450); RBC Distribution Width CV 12.1 % (11.6-14.6); RBC Distribution Width SD 41.9 fl (35.1-43.9); Red Blood Count 4.52 M/mm3 (4.2-5.4)
[2022-07-30 12:28] LABS: ALB/GLOB Ratio 0.8 RATIO (0.9-2.4); AST(SGOT) 22 U/L (15-37); Alanine Aminotransfer ALT/SGPT 37 U/L (13-56); Albumin, Serum 3.4 g/dL (3.2-5.0); Alkaline Phosphatase 61 U/L (45-117); Anion Gap 4 (5-15); BUN 10 mg/dL (7-18); BUN/Creat Ratio 11.7 RATIO (10-20); Calcium,Total 8.9 mg/dL (8.5-10.1); Chloride 108 mmol/L (98-107); Cholesterol 159 mg/dL (200); Creatinine, Serum 0.86 mg/dL (0.55-1.02); EST Glomerular Filtration Rate 70 mL/min (>60); Est Glom Filt Rate - Afr Amer 85 mL/min (>60); Globulin 4.2 g/dL (2.2-4.2); Glucose 99 mg/dL (74-106); High Density Lipoprotein 37 mg/dL; Potassium 4.2 mmol/L (3.5-5.1); Protein, Total 7.6 g/dL (6.4-8.2); Sodium Level 141 mmol/L (136-145); Triglycerides 154 mg/dL; Very Low Density Lipoprotein 31 mg/dL (5-40)
== END | disposition home or self-care (01) ==
PROVIDERS: PCP Family Medicine; Referring Provider Family Medicine; Visit Provider Family Medicine
DX: I10 Essential (primary) hypertension (principal); Z51.81 Encounter for therapeutic drug level monitoring
CPT/HCPCS: 36415; 80053; 80061; 85025

== ENCOUNTER → 2023-03-12 | Outpatient (CLI) | payer MEDICARE, SELFPAY ==
--- NOTE | 2023-03-12 14:39 | BI_ITS ---
MAMMOGRAPHY - BILATERAL SCREENING REASON FOR EXAM: Female, 67 years old. Routine annual screening examination. PERTINENT HISTORY: Non-contributory. Prior right ultrasound-guided breast biopsy and left stereotactic breast biopsy. TECHNIQUE: Digital bilateral breast johnathan (3D mammographic acquisition) in the CC and MLO projections. 2-D mediolateral oblique (MLO) and craniocaudad (CC) views of both breasts were obtained. CAD: Full Field Digital Mammography with Computer Added Detection was performed. COMPARISON: Comparison is made with prior study February 08, 2022 and January 27, 2021. FINDINGS: Breast Composition: The breasts are extremely dense, which lowers the sensitivity of mammography. There are no dominant masses or suspicious calcifications. A tissue clip marker is seen in the retroareolar region of the left breast. A tissue clip marker is also seen in the central anterior lateral aspect of the right breast. No other significant abnormalities are identified. There has been no significant change since the prior study. BI/SCRN MAMM (CAD)W/JOHNATHAN BILAT IMPRESSION: Stable bilateral screening mammogram. Yearly follow-up mammogram recommended. (A) ASSESSMENT CATEGORY: BIRADS Category 2: Benign. A letter regarding these results will be sent to the patient by the facility within 30 days. Approximately 10% of breast cancers are not detected by mammography. A normal mammogram should not delay biopsy of a clinically suspicious abnormality. [id number] Electronically Signed: Nehemiah Holland MD at 8:17 EST ,
== END | disposition home or self-care (01) ==
LOC: OPBI 14:38
PROVIDERS: PCP Family Medicine; Referring Provider Obstetrics & Gynecology; Visit Provider Obstetrics & Gynecology
DX: Z12.31 Encounter for screening mammogram for malignant neoplasm of breast (principal)
CPT/HCPCS: 77063; 77067

== ENCOUNTER → 2023-09-18 | Outpatient (CLI) | payer MEDICARE, SELFPAY ==
--- NOTE | 2023-09-18 14:36 | RAD_ITS ---
INDICATION: BACK PAIN EXAMINATION/TECHNIQUE: X-RAY - XR Spine Lumbar Min 4 Views COMPARISON: None. FINDINGS: 5 views of the lumbar spine. BONES: Mild S-shaped thoracolumbar curvature, positional versus scoliotic. Otherwise, anatomic alignment without evidence of fracture or subluxation. No concerning bony lesion or abnormal sclerosis to suggest lesion. DISCS/JOINTS: No significant degenerative change. SOFT TISSUES: Unremarkable. RAD/L/S Spine Min 4 Views IMPRESSION: Unremarkable lumbar spine. If there is persistent clinical concern for spine fracture and this is a trauma patient, recommend dedicated lumbar spine CT. Electronically Signed: Dmitri Cornejo MD at 0:25 EDT ,
--- NOTE | 2023-09-18 14:36 | RAD_ITS ---
INDICATION: BACK PAIN EXAMINATION/TECHNIQUE: X-RAY - XR Spine Thoracic 3 Views No comparison. FINDINGS: 3 views of the thoracic spine. BONES: Mild S-shaped thoracolumbar curvature, positional versus scoliotic. Otherwise, anatomic alignment without evidence of fracture or subluxation. No concerning bony lesion or abnormal sclerosis to suggest lesion. Total shoulder arthroplasty without obvious hardware complication. DISCS/JOINTS: No significant degenerative change. SOFT TISSUES: Unremarkable. RAD/Thoracic Spine 3 Views IMPRESSION: Unremarkable thoracic spine. If there is persistent clinical concern for spine fracture and this is a trauma patient, recommend dedicated thoracic spine CT. Electronically Signed: Dmitri Cornejo MD at 0:27 EDT ,
== END | disposition home or self-care (01) ==
LOC: RAD 14:35
PROVIDERS: PCP Family Medicine; Referring Provider Family Medicine; Visit Provider Family Medicine
DX: M54.9 Dorsalgia, unspecified (principal)
CPT/HCPCS: 72072; 72110

== ENCOUNTER → 2023-09-26 | Outpatient (CLI) | payer MEDICARE, SELFPAY ==
--- NOTE | 2023-09-26 08:40 | AAVD_ITS ---
Reason For Study: HTN Aorta Measurements Aorta Doppler Measurements Proximal aorta measures1.3 x 1.29cm. in cross- Peak systolic flow velocities within the proximal sectional axis. aorta measure 70.5 cm/sec. Proximal aorta measures1.27cm. in longitudinal Peak systolic flow velocities within the mid aorta axis. measure 90.4 cm/sec. Mid aorta measures1.21 x 1.23cm. in cross- Peak systolic flow velocities within the distal sectional axis. aorta measure 106.7 cm/sec. Mid aorta measures1.2cm. in longitudinal axis. Distal aorta measures1.15 x 1.13cm. in cross- sectional axis. Distal aorta measures1.15cm. in longitudinal axis. Left Iliac Artery Left iliac artery measures .72 x .76 cm. in the cross-sectional axis. Left iliac artery measures .76 cm. in the longitudinal axis. Peak systolic velocity in the left iliac artery measures 94.1 cm/sec. Right Iliac Artery Right iliac artery measures .96 x .96 cm. in the cross-sectional axis. Right iliac artery measures .92 cm. in the longitudinal axis. Peak systolic velocity in the right iliac artery measures 108.6 cm/sec. Procedure Aorta IVC Iliac vasculature or bypass grafts 51270. The exam was diagnostic. Exam performed in department. VL/Abd Aortic/IVC Duplex scan Interpretation Summary Aorta patent, normal caliber Bilateral iliac arteries patent, normal caliber Ordering Physician: Geno Crocker Referring Physician: Geno Crocker Performed By: Sb Dahl, RVT
== END | disposition home or self-care (01) ==
LOC: CVS 08:38
PROVIDERS: PCP Family Medicine; Referring Provider Family Medicine; Visit Provider Family Medicine
DX: R19.8 Other specified symptoms and signs involving the digestive system and abdomen (principal); I10 Essential (primary) hypertension; Z86.79 Personal history of other diseases of the circulatory system
CPT/HCPCS: 93978

== ENCOUNTER → 2024-03-19 | Outpatient (CLI) | payer MEDICARE, SELFPAY ==
--- NOTE | 2024-03-19 15:04 | BI_ITS ---
MAMMOGRAPHY - BILATERAL SCREENING REASON FOR EXAM: Female, 68 years old. Routine annual screening examination. PERTINENT HISTORY: Non-contributory. Prior left stereotactic breast biopsy. TECHNIQUE: Digital bilateral breast johnathan (3D mammographic acquisition) in the CC and MLO projections. 2-D mediolateral oblique (MLO) and craniocaudad (CC) views of both breasts were obtained. CAD: Full Field Digital Mammography with Computer Added Detection was performed. COMPARISON: Comparison is made with prior study dated March 12, 2023. FINDINGS: Breast Composition: The breasts are extremely dense, which lowers the sensitivity of mammography. There are no dominant masses or suspicious calcifications. A tissue clip marker is once again seen in the retrocardiac region of the left breast. A tissue clip marker is also seen in the central anterior lateral aspect of the right breast. Stable thickening of the right periareolar region. No other significant abnormalities are identified. There has been no significant change since the prior study. BI/SCRN MAMM (CAD)W/JOHNATHAN BILAT IMPRESSION: Stable bilateral screening mammogram. Yearly follow-up mammogram recommended. (A) ASSESSMENT CATEGORY: BIRADS Category 2: Benign. A letter regarding these results will be sent to the patient by the facility within 30 days. Approximately 10% of breast cancers are not detected by mammography. A normal mammogram should not delay biopsy of a clinically suspicious abnormality. [id number] Electronically Signed: Nehemiah Holland MD at 16:02 EST ,
--- NOTE | 2024-03-19 15:10 | BD_ITS ---
STUDY: DUAL ENERGY X-RAY ABSORPTIOMETRY / DXA REASON FOR EXAM: Female, 68 years old. 733.00OsteoporosisBONE DENSITY REASON FOR EXAM TECHNIQUE: Bone Mineral Density (BMD) measurements of lumbar spine and bilateral hips were obtained. COMPARISON: Comparison is made with prior study February 08, 2022. FINDINGS: Lumbar Spine (L1-L4): g/cm2 (0.733) / T-score (-3.3) / Z-score (-1.2) Findings are suggestive of osteoporosis with a high fracture risk. Left Femur Total: g/cm2 (0.785) / T-score (-1.3) / Z-score (0.1) Left Femoral Neck: g/cm2 (0.547) / T-score (-2.7) / Z-score (-1.0) Right Femur Total: g/cm2 (0.775) / T-score (-1.4) / Z-score (0.0) Right Femoral Neck: g/cm2 (0.547) / T-score (-2.7) / Z-score (-1.0) The T-Scores on the most recent prior examination were: Lumbar Spine (L1-L4): There has been worsening of bone density since the previous examination. Left Femur Total: which represents an improvement of 1.2%. Right Femur Total: which represents an improvement of 1%. BD/Dexa Bone Density Study IMPRESSION: The patient is considered osteoporotic as outlined below according to World Koffi Organization (WHO) criteria with a high fracture risk. There has been improvement of bone density since the previous examination. Reference Information: The T-score is the number of standard deviations above or below the standard which is normal for young adults at their peak bone mineral density. The World Health Organization (WHO) interprets the T-scores as follows: Above -1 Normal bone density Between -1 and -2.5 Osteopenia Equal to / or below -2.5 Osteoporosis As a practical clinical guideline, osteopenia may be graded as follows: Mild -1 through -1.5 Moderate -1.6 through -2.0 Severe -2.1 through -2.4 The Z-score is the number of standard deviations above or below age-matched controls. A Z-score of less than -1.5 would be considered abnormal. References: 1. NIH Osteoporosis and Related Bone Diseases www osteo.org 2. International Society for Clinical Densitometry www iscd.org 3. National Osteoporosis Foundation www nof.org Electronically Signed: Nehemiah Holland MD at 15:28 EST ,
== END | disposition home or self-care (01) ==
PROVIDERS: PCP Family Medicine; Referring Provider Family Medicine; Visit Provider Obstetrics & Gynecology
DX: Z12.31 Encounter for screening mammogram for malignant neoplasm of breast (principal); M81.0 Age-related osteoporosis without current pathological fracture
CPT/HCPCS: 77063; 77067; 77080

== ENCOUNTER → 2024-12-30 | Outpatient (CLI) | payer MEDICARE, SELFPAY | END | disposition home or self-care (01) | LOC: LABSPEC 11:53 | PROVIDERS: PCP Family Medicine; Visit Provider Nurse Practitioner Women's Health | DX: R10.2 Pelvic and perineal pain (principal) | CPT/HCPCS: 87070; 87086; 87088; 87205 ==

== ENCOUNTER → 2025-01-21 | Outpatient (CLI) | payer MEDICARE, SELFPAY ==
[2025-01-21 12:24] LABS: Color, Urine Yellow (Yellow); Glucose, Dipstick Normal (Normal); Ketone-Dipstick Negative (Negative); Leukocyte Esterase-Dipstick 500 /ul (Negative); Nitrite-Dipstick Negative (Negative); Occult Blood-Urine Negative /ul (Negative); Protein-Dipstick 15 mg/dl (Negative); Specific Gravity, Urine 1.020 (1.002-1.030); Urine Bilirubin Dipstick Negative (Negative)
== END | disposition home or self-care (01) ==
LOC: LAB 11:36
PROVIDERS: PCP Family Medicine; Visit Provider Obstetrics & Gynecology
DX: R39.89 Other symptoms and signs involving the genitourinary system (principal)
CPT/HCPCS: 36415; 81002; 87077; 87086; 87088; 87186

== ENCOUNTER → 2025-02-16 | Outpatient (CLI) | payer MEDICARE, SELFPAY ==
--- NOTE | 2025-02-16 08:40 | RAD_ITS ---
PROCEDURE: TIBIA FIBULA 2 VIEWS 02/16/2025 REASON FOR EXAM: LEFT SINGH PAIN TECHNIQUE: Procedure Code: RADTF Modality: DX Procedure: TIBIA FIBULA 2 VIEWS Laterality: FINDINGS: No evidence of acute fracture or dislocation. The soft tissues are unremarkable. RAD/Tibia & Fibula 2 Views IMPRESSION: No acute osseous abnormalities. Reading Location: [id number]
[2025-02-16 09:32] LABS: Hematocrit 42.4 % (37-47); Hemoglobin 15.3 g/dL (12.0-15.0); Immature Granulocytes Count 0.010 X10^3/uL (0.0-0.0); Mean Corp Hgb Conc 36.1 g/dL (32-36); Mean Corpuscular Volume 91.8 fL (81-99); Mean Platelet Vol. 12.4 fl (6.2-12.0); NRBC Flagged by Analyzer 0 % (0-5); Platelet Count 231 K/mm3 (150-450); RBC Distribution Width CV 11.9 % (11.6-14.6); RBC Distribution Width SD 40.2 fl (35.1-43.9); Red Blood Count 4.62 M/mm3 (4.2-5.4); White Blood Count 7.0 K/mm3 (4.4-11.0)
[2025-02-16 10:22] LABS: AST(SGOT) 26 U/L (<=31); Alanine Aminotransfer ALT/SGPT 24 U/L (<=34); Albumin, Serum 4.0 g/dL (3.4-4.8); Alkaline Phosphatase 63 U/L (35-104); Anion Gap 11 (5-15); BUN 9 mg/dL (4-19); BUN/Creat Ratio 13.4 RATIO (10-20); Calcium,Total 9.2 mg/dL (7.6-11.0); Carbon Dioxide 25.3 mmol/L (21.0-32.0); Chloride 105 mmol/L (98-108); Cholesterol 169 mg/dL (<=200); Globulin 3.7 g/dL (2.2-4.2); Glucose 102 mg/dL (70-99); Low Density Lipoprotein Calc. 102 mg/dL; Potassium 4.2 mmol/L (3.3-5.1); Triglycerides 109 mg/dL; Very Low Density Lipoprotein 22 mg/dL (5-40); Vitamin D,25 Hydroxy 19.6 ng/mL (30-100); cholesterol:hdl ratio screen 3.77
== END | disposition home or self-care (01) ==
LOC: LAB 08:19
PROVIDERS: PCP Family Medicine; Referring Provider Family Medicine; Visit Provider Family Medicine
DX: I10 Essential (primary) hypertension (principal); Z51.81 Encounter for therapeutic drug level monitoring; E55.9 Vitamin D deficiency, unspecified; M81.0 Age-related osteoporosis without current pathological fracture; M79.662 Pain in left lower leg
CPT/HCPCS: 36415; 73590; 80053; 80061; 82306; 85025

== ENCOUNTER → 2025-03-30 | Outpatient (CLI) | payer MEDICARE, SELFPAY ==
--- NOTE | 2025-03-30 08:22 | BI_ITS ---
EXAM: SCRN MAMM (CAD)W/JOHNATHAN BILAT DATE: 03/30/2025 CLINICAL HISTORY: F, Age 69 y/o , SCREENING TECHNIQUE: Procedure Code: [id number] Modality: MG Procedure: SCRN MAMM (CAD)W/JOHNATHAN BILAT COMPARISON: Prior exam(s) were compared FINDINGS: TISSUE DENSITY: The breasts are heterogeneously dense, which may obscure small masses. Bilateral Breast Mammographic Findings: No significant masses, calcifications or other abnormalities are identified. BI/SCRN MAMM (CAD)W/JOHNATHAN BILAT IMPRESSION: No mammographic evidence of malignancy. OVERALL FINAL ASSESSMENT BI-RADS 1: NEGATIVE. RECOMMENDATION: Routine annual follow-up in 1 Year Additional Recommendation none A letter with findings and recommendations will be mailed to the patient. Reading Location: [facility]
== END | disposition home or self-care (01) ==
PROVIDERS: PCP Family Medicine; Referring Provider Family Medicine; Visit Provider Family Medicine
DX: Z12.31 Encounter for screening mammogram for malignant neoplasm of breast (principal)
CPT/HCPCS: 77063; 77067